=== PATIENT | female | born 1930 | race Caucasian/White ===

== ENCOUNTER 2017-02-21 12:53 | Inpatient (IN) ==
[2017-02-21] MEDS ORDERED: MAGNESIUM HYDROXIDE SUSP 30 ML UDCUP PO PRN (15:41)
[2017-02-21] MEDS ORDERED: ONDANSETRON 4 MG/2 ML VIAL IV PRN (15:41)
[2017-02-21] MEDS ORDERED: LOPERAMIDE 2 MG CAPSULE PO PRN ×2 (15:41)
[2017-02-21] MEDS ORDERED: ALUMINUM/MAGNES/SIMETH MAX STR 30 ML UDCUP PO PRN (15:41)
[2017-02-21] MEDS ORDERED: traMADol 50 MG TABLET PO PRN (15:41)
[2017-02-21] MEDS ORDERED: MYLANTA/LIDO VISC 2:1 300 ML BOTTLE SWISH/SPIT PRN (15:41)
[2017-02-21] MEDS ORDERED: chlorproMAZINE INJ 50 MG in SODIUM CHLORIDE 0.9% 100 ML IV PRN (15:41)
[2017-02-21] MEDS ORDERED: PROMETHAZINE INJ 25 MG in SODIUM CHLORIDE 0.9% 50 ML IV PRN (15:41)
[2017-02-21] MEDS ORDERED: guaiFENesin 200 MG/10 ML UDCUP PO PRN (15:41)
[2017-02-21] MEDS ORDERED: chlorproMAZINE 25 MG TABLET PO PRN (15:41)
[2017-02-21] MEDS ORDERED: MYLANTA/LIDO VISC 2:1 300 ML BOTTLE SWISH/SWAL PRN (15:41)
[2017-02-21] MEDS ORDERED: chlorproMAZINE INJ 25 MG in SODIUM CHLORIDE 0.9% 100 ML IV PRN (15:41)
[2017-02-21] MEDS ORDERED: BENZTROPINE 2 MG/2 ML AMP IV PRN (15:41)
[2017-02-21] MEDS ORDERED: diphenhydrAMINE CAP 25 MG CAPSULE PO PRN (15:41)
[2017-02-21] MEDS ORDERED: ALLOPURINOL 100 MG TABLET PO SCH (16:00)
[2017-02-21] MEDS: SODIUM CHLORIDE 0.45% 1,000 ML IV SCH (16:42)
[2017-02-21 17:43] LABS: Hematocrit 21.1 VOL% (35.7-47.0); Hemoglobin 7.4 GM/DL (12.0-16.0); Immature Granulocytes % 0.1 %; Immature Granulocytes Absolute 0.09 #; Lymphocytes # 78.7 10*3/uL (1.4-4.0); Lymphocytes % 77.2 % (21.3-54.2); Mean Corpuscular HGB Conc 35.1 GM/DL (32-36); Mean Corpuscular Hemoglobin 34 PG (27-34); Mean Corpuscular Volume 97.7 FL (87-102); Mean Platelet Volume 9.9 FL (9.6-12.0); Monocytes # 22.4 10*3/uL (0.11-0.8); NRBC # 0.19 10*3/uL; Neutrophils # 0.7 10*3/uL (1.4-7.4); Neutrophils % 0.7 % (38.7-73.9); Red Blood Count 2.16 MC/CUMM (3.8-5.5); Red Cell Distribution Width 18.3 % (9.3-17.3)
[2017-02-21 17:48] LABS: Platelet Count 24 T/CUMM (130-400)
[2017-02-21] MEDS ORDERED: SODIUM CHLORIDE 0.9% 250 ML IV PRN (18:02)
--- NOTE | 2017-02-21 18:10 | Oncology History&Physical ---
Assessment and Plan (1) Acute leukemia Status: Acute Assessment and plan: Highly suspicious for acute leukemia. Plan is peripheral blood evaluation and 2 units of packed red blood cells tonight. I have informed her that a bone marrow biopsy may be necessary though with her degree of circulating leukocytes a diagnosis could easily be rendered from peripheral blood testing. Her daughter and [id number] were present during my interview and discussion. I have started IV fluids and allopurinol in anticipation of some form of chemotherapy treatment. Current Visit: Yes History of Present Illness Chief complaint: leukocytosis History of present illness: Ms. Davies is a 86 year old female I was called about today from Dr. Andrew Bowers in [place]. The patient was noted to have a white blood cell count near 100,000. Previous testing from May 2016 revealed a normal white blood cell count. The patient is also noted to be profoundly anemic and thrombocytopenic. On questioning she is reported easy bruisability and some dyspnea with exertion. She otherwise has been living independently and appears younger than stated age Home Medications Medication Instructions Recorded Confirmed Type Amlodipine Besylate [Amlodipine 5 mg PO DAILY 02/21/17 02/21/17 History Besylate] buPROPion [Wellbutrin] 100 mg PO DAILY 02/21/17 02/21/17 History Allergies Allergy/AdvReac Type Severity Reaction Status Date / Time No Known Allergies Allergy Verified 02/21/17 15:41 Medical,Surgical,& Family Hx - Medical History Cardio: History of: Hypertension (on norvasc) Genitourinary: History of: Recurring Urinary Tract Infections - Family History Family History: Reports;: Family Cancer (mother father sister and 4 brothers) - Social History Smoking Status: Never smoker Frequency of Alcohol Use: None - Constitutional Constitutional: Present: chills, fatigue, malaise. Absent: fever(s), night sweats, weight gain - EENT Eye: Absent: diplopia, loss of vision Ears: Absent: ear discharge, ear pain Nose, mouth and throat: Absent: neck mass, neck pain, sore throat - Cardiovascular Cardiovascular ROS IM: Absent: chest pain - Respiratory Respiratory: Absent: cough - Genitourinary Genitourinary ROS female: Present: dysuria (History given of chronic urinary tract issues). Absent: difficulty urinating - Hematologic/Lymphatic Hematologic/Lymphatic: Present: easy bruising. Absent: lymphadenopathy Exam - Constitutional Vitals: Period Temp Pulse Resp BP Sys/Lopes Pulse Ox Last 24 Hr 97.9 F-98.0 F 77-82 20-20 106-131/59-63 98-98 General appearance: normal weight, no acute distress - Head Head Exam: Present: normal inspection, normocephalic - Eye Eye Exam: Present: EOMI. Absent: conjunctival injection, periorbital swelling, scleral icterus - ENT ENT exam: Present: normal external ear exam - Neck Neck exam: Present: normal inspection. Absent: lymphadenopathy - Respiratory Respiratory exam: Present: CTAB. Absent: accessory muscle use, chest wall tenderness - Cardiovascular Cardiovascular exam: Present: RRR. Absent: systolic murmur - GI/Abdominal GI/Abdominal exam: Absent: distended, firm, guarding - Extremities Exam Extremities exam: Present: normal capillary refill. Absent: edema - Neurological Exam Neurological exam: Present: alert, oriented X3 - Psychiatric Psychiatric exam: Present: normal affect, normal mood - Skin Skin exam: Present: warm, dry Results - Labs CBC & BMP: 02/21/17 17:24
[2017-02-21 18:13] LABS: Albumin 3.9 G/DL (3.4-5.0); Bilirubin,Total 0.7 MG/DL (0.2-1.0); Calcium 9.3 MG/DL (8.5-10.1); Osmolality,Calculated 275.1 MOS/KG (273-304); Potassium 2.7 MMOL/L (3.5-5.1); Total Protein 7.1 G/DL (6.4-8.3); Uric Acid 9.7 MG/DL (2.6-6.0)
[2017-02-21 19:11] LABS: Apearance,Urine CLOUDY (Clear); Bacteria,Urine Occasional /HPF (Few); Bilirubin,Urine Negative (Negative); Blood, Urine Moderate mg/dL (Negative); Glucose,Urine (UA) Negative (Negative); Ketones,Urine Negative (Negative); Mucus,Urine Occasional /LPF (Occasional); Nitrite,Urine Negative (Negative); Protein,Urine 100 MG/DL; RBC,Urine 8 /HPF (0-4); Squamous Epithelial Cell,Urine Occasional /HPF (0-10); Urine Color Yellow (Yellow); Urine Specific Gravity 1.009 (1.001-1.035); Urine Urobilinogen < 2.0 EU/DL (0.2-1.0); WBC,Urine 16 /HPF (0-6)
[2017-02-21] MEDS: TEMAZEPAM 7.5 MG CAPSULE PO PRN (20:49)
[2017-02-21] MEDS: ACETAMINOPHEN 325 MG TABLET PO PRN (20:50)
[2017-02-21 21:43] LABS: Hypochromasia 1+; Lymphocytes 97 % (20-55); Nucleated Red Blood Cells 1 (0-5); Platelet Estimate Decreased; Polychromasia Few; Total Cells Counted 100
[2017-02-21 21:44] LABS: Microcytosis 1+
[2017-02-22 05:36] LABS: Hematocrit 25.2 VOL% (35.7-47.0); Hemoglobin 8.7 GM/DL (12.0-16.0); Immature Granulocytes % 0.1 %; Immature Granulocytes Absolute 0.09 #; Lymphocytes # 46.2 10*3/uL (1.4-4.0); Lymphocytes % 44.5 % (21.3-54.2); Mean Corpuscular HGB Conc 34.5 GM/DL (32-36); Mean Corpuscular Hemoglobin 32 PG (27-34); Mean Corpuscular Volume 91.6 FL (87-102); Mean Platelet Volume 11.1 FL (9.6-12.0); Monocytes # 56.8 10*3/uL (0.11-0.8); Monocytes % 54.8 % (1.7-12.7); NRBC # 0.22 10*3/uL; Neutrophils # 0.6 10*3/uL (1.4-7.4); Neutrophils % 0.6 % (38.7-73.9); Red Blood Count 2.75 MC/CUMM (3.8-5.5); Red Cell Distribution Width 19.7 % (9.3-17.3)
[2017-02-22 05:48] LABS: Platelet Count 23 T/CUMM (130-400); White Blood Count 103.7 T/CUMM (4-12)
[2017-02-22 06:14] LABS: Lymphocytes 93 % (20-55); Total Cells Counted 100
[2017-02-22 06:15] LABS: Microcytosis 1+
[2017-02-22 06:16] LABS: Hypochromasia 1+; Ovalocytes Slight; Platelet Estimate Decreased
[2017-02-22 06:17] LABS: Atypical Lymphocytes Moderate
--- NOTE | 2017-02-22 07:59 | Oncology Progress Note ---
Assessment and Plan (1) Acute leukemia Status: Acute Assessment and plan: Highly suspicious for acute leukemia. Plan is peripheral blood evaluation and 2 units of packed red blood cells tonight. I have informed her that a bone marrow biopsy may be necessary though with her degree of circulating leukocytes a diagnosis could easily be rendered from peripheral blood testing. Her daughter and [id number] were present during my interview and discussion. I have started IV fluids and allopurinol in anticipation of some form of chemotherapy treatment. Current Visit: Yes Oncology Subjective PN Interval history: Hospital day 2 for elderly patient with suspected acute leukemia. Peripheral blood studies are being shipped today with results expected late tomorrow or early Monday. I am not going to pursue a bone marrow at this time. Transfuse red blood cells overnight. Reporting dysuria with leukocytes in the urine. I will start IV antibiotics today. Continue to watch her platelet count. She does have an elevated uric acid and we will continue hydration and allopurinol. Exam - Constitutional Vitals: Period Temp Pulse Resp BP Sys/Lopes Pulse Ox Last 24 Hr 97.9 F-100.4 F 69-84 18-20 94-131/48-63 94-98 Results - Labs CBC & BMP: 02/22/17 04:22 02/21/17 17:24
[2017-02-22] MEDS: ALLOPURINOL 300 MG TABLET PO SCH (10:01)
[2017-02-22] MEDS: cefTRIAXone 1,000 MG in SODIUM CHLORIDE 0.9% 100 ML IV SCH (10:10)
[2017-02-22] MEDS: LACTULOSE 20 GM/30 ML UDCUP PO PRN (12:47)
[2017-02-22] MEDS: SODIUM CHLORIDE 0.45% 1,000 ML IV SCH (21:00)
[2017-02-22] MEDS: TEMAZEPAM 7.5 MG CAPSULE PO PRN (21:01)
[2017-02-23] MEDS: SODIUM CHLORIDE 0.45% 1,000 ML IV SCH ×2 (04:43→18:38)
[2017-02-23 05:35] LABS: Hematocrit 24.6 VOL% (35.7-47.0); Hemoglobin 8.5 GM/DL (12.0-16.0); Immature Granulocytes % 0.1 %; Immature Granulocytes Absolute 0.13 #; Lymphocytes # 56.8 10*3/uL (1.4-4.0); Lymphocytes % 44.3 % (21.3-54.2); Mean Corpuscular HGB Conc 34.6 GM/DL (32-36); Mean Corpuscular Hemoglobin 32 PG (27-34); Mean Corpuscular Volume 92.5 FL (87-102); Monocytes # 70.9 10*3/uL (0.11-0.8); Monocytes % 55.2 % (1.7-12.7); NRBC # 0.17 10*3/uL; Neutrophils # 0.5 10*3/uL (1.4-7.4); Neutrophils % 0.4 % (38.7-73.9); Red Blood Count 2.66 MC/CUMM (3.8-5.5); Red Cell Distribution Width 19.9 % (9.3-17.3)
[2017-02-23 05:42] LABS: Platelet Count 18 T/CUMM (130-400); White Blood Count 128.3 T/CUMM (4-12)
[2017-02-23 06:07] LABS: Atypical Lymphocytes Moderate; Hypochromasia 1+; Lymphocytes 73 % (20-55); Microcytosis 1+; Ovalocytes Slight; Smudge Cells Moderate; Total Cells Counted 100
[2017-02-23 06:08] LABS: Platelet Estimate Decreased
[2017-02-23 06:11] LABS: Calcium 8.9 MG/DL (8.5-10.1); Magnesium 1.9 MG/DL (1.8-2.4); Potassium 2.6 MMOL/L (3.5-5.1)
[2017-02-23] MEDS ORDERED: POTASSIUM CHLORIDE 20 MEQ TABLET PO ONE (08:45)
--- NOTE | 2017-02-23 08:50 | Oncology Progress Note ---
Assessment and Plan (1) Acute leukemia Status: Acute Assessment and plan: Highly suspicious for acute leukemia. Plan is peripheral blood evaluation and 2 units of packed red blood cells tonight. I have informed her that a bone marrow biopsy may be necessary though with her degree of circulating leukocytes a diagnosis could easily be rendered from peripheral blood testing. Her daughter and [id number] were present during my interview and discussion. I have started IV fluids and allopurinol in anticipation of some form of chemotherapy treatment. Current Visit: Yes Oncology Subjective PN Interval history: Patient stable overnight. No fevers reported. Remains ambulatory and nontoxic. Labs are reviewed with worsening leuko-cytosis. I am going to have a PICC line placed today and check echocardiogram. 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 Exam - Constitutional Vitals: Period Temp Pulse Resp BP Sys/Lopes Pulse Ox Last 24 Hr 96.5 F-98.6 F 62-70 20-20 102-123/51-60 91-95 Results - Labs CBC & BMP: 02/23/17 04:31 02/23/17 04:31
[2017-02-23] MEDS: ALLOPURINOL 300 MG TABLET PO SCH (09:28)
[2017-02-23] MEDS: cefTRIAXone 1,000 MG in SODIUM CHLORIDE 0.9% 100 ML IV SCH (09:38)
--- NOTE | 2017-02-23 12:32 | ECHO Report ---
Roxanne Davies Exam Date: 02/23/2017 10:23 Referring Physician: Technologist: juan manuel Joya, RVT Age: 86 Ht (in): 71 Wt (lb): 174 Gender: F Exam Location: [facility] Echo Indications: Essential (primary) hypertension, UTI, Pre- chemo, Acute leukemia BP: 123 / 60 HR: 68 Rhythm: Sinus Technical Quality: Fair IMPRESSIONS 1. Normal left ventricular size and ejection fraction. EF is estimated to be in the 55% range. 2. Small to moderate sized pericardial effusion with what appears to be proteinaceous material in the pericardial effusion. No evidence of diastolic RV collapse. 3. Mild aortic valve sclerosis with preserved leaflet excursion 4. 1+ tricuspid insufficiency at velocities suggesting systolic PA pressures of 42 mmHg. MEASUREMENTS (Male / Female) Normal Values 2D ECHO LV Diastolic Diameter PLAX 4.9 cm 4.2 - 5.9 / 3.9 - 5.3 cm LV Systolic Diameter PLAX 2.5 cm LV Fractional Shortening PLAX 49.5 % IVS Diastolic Thickness 0.8 cm 0.6 - 1.0 / 0.6 - 0.9 cm LVPW Diastolic Thickness 0.9 cm 0.6 - 1.0 / 0.6 - 0.9 cm RV Internal Dim ED PLAX 3.2 cm Aortic Root Diameter 3.9 cm LA Systolic Diameter LX 3.8 cm 3.0 - 4.0 / 2.7 - 3.8 cm DOPPLER TR Peak Velocity 299.0 cm/s TR Peak Gradient 35.8 mmHg FINDINGS Left Ventricle Right Ventricle Right Atrium Left Atrium Mitral Valve Aortic Valve Tricuspid Valve Pulmonic Valve Pericardium Aorta Ben Calabrese MD (Electronically Signed) Final Date: 23 February 2017 12:31
--- NOTE | 2017-02-23 13:37 | Physician Query Form ---
CLICK EDIT DOCUMENT TO SELECT QUERY ANSWER --> OK --> SIGN Suzanna Reid RN Clinical Systems Integrator W) [phone] (f) [phone] [email or web address] PROVIDERS: Make your selection(s) from the choices in EACH section by typing an "x" and enter comments in the comment section. Please use your independent medical judgment in providing your response. This request does not imply that any particular answer is desired or expected. CLINICAL INDICATORS: (Providers should not edit this section) Based on documentation from echo report "UTI" Positive urine analysis. Positive urine culture for gram neg rods. Based on the above, could you clarify the appropriate diagnosis, if significant , that supports the above abnormalities and additional evaluation, monitoring, and/or treatment rendered: ( x) UTI ( ) Does NOT have a UTI ( ) Other, please specify: ( ) Clinically unable to determine COMMENTS: PLEASE ALSO DOCUMENT RESPONSE IN PROGRESS NOTES AND/OR DISCHARGE SUMMARY Use of terms such as suspected, likely, or probable (associated with a specific diagnosis that is being evaluated, monitored, or treated as if it exists) are acceptable and can be restated in the discharge summary if not ruled out. [facility]
[2017-02-23] MEDS ORDERED: DEXAMETHASONE 10 MG/1 ML VIAL IV ONE ×2 (14:43→16:00)
[2017-02-23] MEDS ORDERED: PALONOSETRON 0.25 MG/5 ML VIAL IV ONE ×2 (14:43→16:00)
--- NOTE | 2017-02-23 15:48 | Post Interventional Procedure ---
Pre-op diagnosis: leukemia Post-op diagnosis: same Procedure: PICC placement Contrast: none Flouroscopy: 0.1 min Radiologist: Joce Villafuerte Anesthesia: local Specimens: none sent Estimated blood loss: none Complications: none Condition: stable Description/Findings: left arm 5 F dual lumen picc placement done and ready to use Assessment and Plan - Time spent with patient Time spent with patient: Less than 30 minutes
--- NOTE | 2017-02-23 15:53 | Interventional Radiology Rpt ---
IR PICC line insertion, US guide vascular access IR PICC Placement Peripherally-inserted central catheter (PICC) placement using ultrasound and fluoroscopic guidance Ultrasound of the left upper extremity Clinical Information: 85 year old female with probable new diagnosis of leukemia. PICC line requested for intravenous access and chemotherapy administration. Physician: Dr. Villafuerte Procedure: The patient was advised of the benefits, risks, and alternatives of the procedure and informed consent was obtained. A time out was performed with verification of the patient's name, MRN, site of procedure, and type of procedure to be performed. The patient was positioned in the supine position on the angiographic table. The site was prepped and draped in the usual sterile fashion. Additionally, maximal sterile barrier technique was employed for the procedure. A bisque tile burner radiograph reveals no relevant abnormality. Ultrasound examination of the left arm demonstrates patent and compressible brachial and basilic veins. The left arm was prepped and draped in the usual sterile fashion. The left basilic vein was again identified. Using ultrasound guidance, a 21 gauge needle was used to access the vein. A permanent ultrasound recording of vascular access was obtained for the patient's record. A 0.018" cope wire was then advanced into the vein. The needle was exchanged for a 5 [place] peel-away sheath. A 5 [place] double lumen Bard Solo PICC catheter was measured and trimmed to the 38 cm scout. The PICC line was advanced through the sheath and into the central circulation. The catheter tip was positioned at the cavo-atrial junction. The peel-away sheath was then removed. At the conclusion of the procedure, the catheter was secured in place using a Stat-Lock device. A sterile dressing was applied. The lumens aspirate and flush freely. The catheter is ready for immediate use. The patient tolerated the procedure well and was returned to the PRU in stable condition. EBL: < 5 mL. Complications: None. Fluoroscopy time: 0.1 minutes Total number of images for this study: 3 Conclusion: Successful placement of a 5 [place] double lumen Bard Solo power injectable PICC via the left basilic vein. The catheter is ready for immediate use. PROCEDURE INTERPRETED AT [facility] DEPARTMENT OF RADIOLOGY Final Report Signed by: Joce Villafuerte
[2017-02-23] MEDS ORDERED: SODIUM CHLORIDE 0.9% IV SCH (16:00)
[2017-02-23] MEDS ORDERED: CYTARABINE IV SCH (16:00)
[2017-02-23 17:50] LABS: INR 1.3; PT Patient Result 13.9 SECS; Partial Thromboplastin Time 30.6 SECS (0-40)
[2017-02-23] MEDS: TEMAZEPAM 7.5 MG CAPSULE PO PRN (20:58)
[2017-02-24 04:43] LABS: Hematocrit 24.1 VOL% (35.7-47.0); Hemoglobin 8.4 GM/DL (12.0-16.0); Immature Granulocytes % 0.1 %; Immature Granulocytes Absolute 0.11 #; Lymphocytes # 86.3 10*3/uL (1.4-4.0); Lymphocytes % 73.4 % (21.3-54.2); Mean Corpuscular HGB Conc 34.9 GM/DL (32-36); Mean Corpuscular Hemoglobin 33 PG (27-34); Mean Corpuscular Volume 94.1 FL (87-102); Mean Platelet Volume 9.8 FL (9.6-12.0); Monocytes # 30.6 10*3/uL (0.11-0.8); NRBC # 0.05 10*3/uL; Neutrophils # 0.5 10*3/uL (1.4-7.4); Neutrophils % 0.5 % (38.7-73.9); Red Blood Count 2.56 MC/CUMM (3.8-5.5); Red Cell Distribution Width 19.2 % (9.3-17.3)
[2017-02-24 04:47] LABS: Platelet Count 19 T/CUMM (130-400); White Blood Count 117.6 T/CUMM (4-12)
[2017-02-24 05:04] LABS: Calcium 8.9 MG/DL (8.5-10.1); Potassium 3.8 MMOL/L (3.5-5.1)
[2017-02-24 05:40] LABS: Atypical Lymphocytes Moderate; Lymphocytes 83 % (20-55); Total Cells Counted 100
[2017-02-24 05:41] LABS: Hypochromasia 1+; Microcytosis 1+; Ovalocytes Slight; Platelet Estimate Decreased; Smudge Cells Few
[2017-02-24 05:42] LABS: Anisocytosis 1+
[2017-02-24 05:45] LABS: Phosphorous 2.9 MG/DL (2.5-4.9); Uric Acid 6.9 MG/DL (2.6-6.0)
[2017-02-24] MEDS ORDERED: SODIUM CHLORIDE 0.9% 250 ML IV PRN (08:20)
--- NOTE | 2017-02-24 08:43 | Oncology Progress Note ---
Assessment and Plan (1) Acute leukemia Status: Acute Assessment and plan: Highly suspicious for acute leukemia. Plan is peripheral blood evaluation and 2 units of packed red blood cells tonight. I have informed her that a bone marrow biopsy may be necessary though with her degree of circulating leukocytes a diagnosis could easily be rendered from peripheral blood testing. Her daughter and [id number] were present during my interview and discussion. I have started IV fluids and allopurinol in anticipation of some form of chemotherapy treatment. Current Visit: Yes Oncology Subjective PN Interval history: Patient stable overnight without fever chest pain or dyspnea. 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 I am awaiting a confirmatory FISH report from our reference lab in [place]. We will initiate oral all trans-retinoic acid this morning and hopefully begin arsenic trioxide later this evening I have reviewed potential complications of induction therapy with the patient and the nursing staff including but not limited to the fever, coagulopathy, and most importantly dedifferentiation syndrome. In light of this I will be begin dexamethasone iv twice daily prophylactically 4 days. Baseline chest x-ray will be obtained today. Echocardiogram is reviewed Urine culture shows Proteus vulgaris and a second yet identified gram-negative marlin. Antibiotics are adjusted this morning with discontinuation of Rocephin and initiation of cefepime based on the currently available sensitivity. Future sensitivities will need to be followed up. She will likely need red blood cell transfusion in the next 24-48 hours. Parameters are in place to maintain platelets above 30,000 with transfusion as needed. Her fibrinogen is low with 4 units of FFP ordered today. If volume becomes an issue, then cryoprecipitate would be appropriate for future fibrinogen replacement Exam - Constitutional Vitals: Period Temp Pulse Resp BP Sys/Lopes Pulse Ox Last 24 Hr 96.7 F-99.2 F 59-84 16-20 106-135/56-63 90-93 Results - Labs CBC & BMP: 02/24/17 04:15 02/24/17 04:15
[2017-02-24] MEDS: cefTRIAXone 1,000 MG in SODIUM CHLORIDE 0.9% 100 ML IV SCH (08:55)
[2017-02-24] MEDS ORDERED: DEXAMETHASONE 10 MG/1 ML VIAL IV SCH (09:00)
[2017-02-24] MEDS: SODIUM CHLORIDE 0.45% 1,000 ML IV SCH (09:02)
[2017-02-24] MEDS: CEFEPIME 1,000 MG in SODIUM CHLORIDE 0.9% 100 ML IV SCH ×2 (09:02→21:23)
[2017-02-24] MEDS: ALLOPURINOL 300 MG TABLET PO SCH (09:02)
[2017-02-24] MEDS ORDERED: DEXAMETHASONE 10 MG/1 ML VIAL IV ONE (11:30)
[2017-02-24] MEDS ORDERED: PALONOSETRON 0.25 MG/5 ML VIAL IV ONE (11:30)
[2017-02-24] MEDS: SODIUM CHLORIDE 0.9% IV SCH (15:37)
[2017-02-24] MEDS: CYTARABINE IV SCH (15:37)
--- NOTE | 2017-02-24 16:44 | XRay Report ---
History is AML, prechemotherapy The heart is mildly enlarged. A left PICC line catheter tip overlies the region of the SVC There is elevation right diaphragm with linear opacity in the right perihilar region. Calcified right hilar node and right lung granuloma present. No consolidated infiltrate is seen. Confluent shadows overlie the left lung base Impression: 1. Nonspecific elevation the right diaphragm with likely scarring and sequelae of remote granulomatous process in the right lung base 2. Mild cardiomegaly PROCEDURE INTERPRETED AT [facility] DEPARTMENT OF RADIOLOGY Final Report Signed by: Dr. Oanh Gonzales
[2017-02-24] MEDS: TEMAZEPAM 7.5 MG CAPSULE PO PRN (21:22)
[2017-02-25] MEDS: ALPRAZolam 0.25 MG TABLET PO PRN (00:23)
[2017-02-25] MEDS: SODIUM CHLORIDE 0.45% 1,000 ML IV SCH ×2 (02:15→15:39)
[2017-02-25 06:27] LABS: Hematocrit 20.4 VOL% (35.7-47.0); Hemoglobin 6.8 GM/DL (12.0-16.0); Immature Granulocytes % 0.2 %; Lymphocytes # 65.2 10*3/uL (1.4-4.0); Lymphocytes % 50.2 % (21.3-54.2); Mean Corpuscular HGB Conc 33.3 GM/DL (32-36); Mean Corpuscular Hemoglobin 32 PG (27-34); Mean Corpuscular Volume 94.9 FL (87-102); Mean Platelet Volume 10.1 FL (9.6-12.0); Monocytes % 49.2 % (1.7-12.7); NRBC # 0.11 10*3/uL; Neutrophils # 0.5 10*3/uL (1.4-7.4); Neutrophils % 0.4 % (38.7-73.9); Red Blood Count 2.15 MC/CUMM (3.8-5.5); Red Cell Distribution Width 19.3 % (9.3-17.3)
[2017-02-25 06:35] LABS: Platelet Count 39 T/CUMM (130-400); White Blood Count 129.9 T/CUMM (4-12)
[2017-02-25 07:12] LABS: Calcium 8.8 MG/DL (8.5-10.1); Magnesium 1.9 MG/DL (1.8-2.4); Osmolality,Calculated 287.4 MOS/KG (273-304); Potassium 3.4 MMOL/L (3.5-5.1)
[2017-02-25 07:35] LABS: Band Neutrophils 1 % (0-10); Hypochromasia 1+; Lymphocytes 28 % (20-55); Segmented Neutrophils 1 % (50-85); Total Cells Counted 100
[2017-02-25 07:36] LABS: Platelet Estimate Decreased
[2017-02-25] MEDS: ALLOPURINOL 300 MG TABLET PO SCH (09:29)
[2017-02-25] MEDS: LACTULOSE 20 GM/30 ML UDCUP PO PRN (09:29)
[2017-02-25] MEDS: CEFEPIME 1,000 MG in SODIUM CHLORIDE 0.9% 100 ML IV SCH ×2 (09:30→23:02)
--- NOTE | 2017-02-25 11:11 | Oncology Progress Note ---
Assessment and Plan (1) Acute leukemia Status: Acute Assessment and plan: continue with cytarabine day 2 - continue with cefepime coverage urine culture sensitive - continue with IVF and allopurinol - daily uric acid - transfusion support to keep plat > 20, fibrinogen >100, and Hct > 20 - transfuse 2 units PRBC and 10 units of cryo today - will repeat fibrinogen after cryoprecipitate given today - if WBC continues to rise will likely add hydrea until nelly-c starts to decrease counts Current Visit: Yes Oncology Subjective PN Interval history: 86 year old female admitted with newly dx AML initiated on NELLY-C chemotherapy 02/24. Per patient tolerating treatment well thus far. No N/V/D. No bleeding. No symptoms of hyperviscosity with no GAR, blurry vision. Refers constipation. No fevers. Referred some shortness of breath improved with 2 liters NS. Exam - Constitutional Vitals: Period Temp Pulse Resp BP Sys/Lopes Pulse Ox Last 24 Hr 97 F-98.4 F 61-94 18-20 128-160/59-78 92-98 General appearance: no acute distress - Eye Eye Exam: Present: EOMI Pupils: Present: PERRL - Respiratory Respiratory exam: Present: CTAB - Cardiovascular Cardiovascular exam: Present: RRR - GI/Abdominal GI/Abdominal exam: Present: soft. Absent: ascites, distended, mass, tenderness - Extremities Exam Extremities exam: Absent: edema - Neurological Exam Neurological exam: Present: alert, oriented X3 - Psychiatric Psychiatric exam: Present: normal affect - Skin Skin exam: Present: warm Results - Labs CBC & BMP: 02/25/17 04:42 02/25/17 04:42
[2017-02-25] MEDS ORDERED: SODIUM CHLORIDE 0.9% 250 ML IV PRN (11:13)
[2017-02-25] MEDS: CYTARABINE IV SCH (15:20)
[2017-02-25] MEDS: SODIUM CHLORIDE 0.9% IV SCH (15:20)
[2017-02-25] MEDS: LATANOPROST 0.005% OPH SOLN 2.5 ML BOTTLE BOTH EYES SCH (21:06)
[2017-02-26 05:31] LABS: Hematocrit 28.4 VOL% (35.7-47.0); Hemoglobin 9.5 GM/DL (12.0-16.0); Immature Granulocytes % 0.1 %; Immature Granulocytes Absolute 0.08 #; Lymphocytes # 67.9 10*3/uL (1.4-4.0); Lymphocytes % 76.9 % (21.3-54.2); Mean Corpuscular HGB Conc 33.5 GM/DL (32-36); Mean Corpuscular Hemoglobin 31 PG (27-34); Mean Corpuscular Volume 92.8 FL (87-102); Mean Platelet Volume 9.9 FL (9.6-12.0); Monocytes # 19.9 10*3/uL (0.11-0.8); Monocytes % 22.5 % (1.7-12.7); NRBC # 0.08 10*3/uL; Neutrophils # 0.4 10*3/uL (1.4-7.4); Neutrophils % 0.5 % (38.7-73.9); Red Blood Count 3.06 MC/CUMM (3.8-5.5); Red Cell Distribution Width 18.5 % (9.3-17.3)
[2017-02-26 05:35] LABS: Platelet Count 32 T/CUMM (130-400); White Blood Count 88.3 T/CUMM (4-12)
[2017-02-26 06:28] LABS: Bilirubin,Total 1.2 MG/DL (0.2-1.0); Calcium 8.3 MG/DL (8.5-10.1); Osmolality,Calculated 284.5 MOS/KG (273-304); Potassium 3.1 MMOL/L (3.5-5.1); Uric Acid 5.6 MG/DL (2.6-6.0)
[2017-02-26 06:44] LABS: INR 1.5; PT Patient Result 16.7 SECS; Partial Thromboplastin Time 25.9 SECS (0-40)
[2017-02-26 07:52] LABS: Lymphocytes 97 % (20-55); Promyelocytes 1 %; Segmented Neutrophils 2 % (50-85); Total Cells Counted 100
[2017-02-26 07:53] LABS: Hypochromasia 1+; Platelet Estimate Decreased
[2017-02-26] MEDS ORDERED: SODIUM CHLORIDE 0.9% 250 ML IV PRN (08:48)
[2017-02-26] MEDS ORDERED: POTASSIUM CHLORIDE RIDER 10 MEQ in PREMIX 1 EACH IV ONE (09:49)
--- NOTE | 2017-02-26 09:49 | Oncology Progress Note ---
Assessment and Plan (1) Acute leukemia Status: Acute Assessment and plan: continue with cytarabine day 3 - continue with cefepime coverage urine culture proteus and klebsiella sensitive cefepime - continue with IVF and allopurinol - daily uric acid - transfusion support to keep plat > 20, fibrinogen >100, and Hct > 20 - transfused 2 units PRBC and 10 units of cryo 02/25. will transfuse an addition 10 units of cryo today - will repeat fibrinogen after cryoprecipitate given today - WBC count starting to respond today. - no signs of TLS - replete potassium today Current Visit: Yes Oncology Subjective PN Interval history: 86 year old female presented with constipation and not feeling well found to have newly dx AML with elevated WBC count. Patient was initiated on cytarabine 02/24/17 and tolerating well. Patient had some SOB on 02/25 but has resolved today. Denies N/V/D. No abdominal pain. No bleeding. Refers poor appetite but is taking in calories. No fevers. Exam - Constitutional Vitals: Period Temp Pulse Resp BP Sys/Lopes Pulse Ox Last 24 Hr 96.3 F-98.5 F 64-72 15-20 116-149/57-70 92-99 General appearance: no acute distress - Eye Eye Exam: Present: EOMI Pupils: Present: PERRL - Respiratory Respiratory exam: Present: CTAB - Cardiovascular Cardiovascular exam: Present: RRR - GI/Abdominal GI/Abdominal exam: Present: soft. Absent: ascites, distended, guarding, mass, tenderness - Extremities Exam Extremities exam: Absent: edema - Neurological Exam Neurological exam: Present: alert, oriented X3 - Psychiatric Psychiatric exam: Present: normal affect - Skin Skin exam: Present: warm Results - Labs CBC & BMP: 02/26/17 04:52 02/26/17 04:52
[2017-02-26] MEDS: buPROPion 100 MG TABLET PO SCH (09:56)
[2017-02-26] MEDS: ALLOPURINOL 300 MG TABLET PO SCH (09:56)
[2017-02-26] MEDS: SODIUM CHLORIDE 0.45% 1,000 ML IV SCH (09:56)
[2017-02-26] MEDS: TIMOLOL 0.5% OPH SOLN 5 ML BOTTLE BOTH EYES SCH (09:56)
[2017-02-26] MEDS: CEFEPIME 1,000 MG in SODIUM CHLORIDE 0.9% 100 ML IV SCH (09:57)
[2017-02-26] MEDS: CYTARABINE IV SCH (14:21)
[2017-02-26] MEDS: SODIUM CHLORIDE 0.9% IV SCH (14:21)
[2017-02-26] MEDS: ACETAMINOPHEN 325 MG TABLET PO PRN (21:05)
[2017-02-26] MEDS: LATANOPROST 0.005% OPH SOLN 2.5 ML BOTTLE BOTH EYES SCH (21:19)
[2017-02-26] MEDS: MEROPENEM 1,000 MG in SODIUM CHLORIDE 0.9% 100 ML IV SCH (21:19)
[2017-02-26] MEDS: VANCOMYCIN INJ 1,250 MG in SODIUM CHLORIDE 0.9% 250 ML IV SCH (22:56)
[2017-02-27] MEDS: SODIUM CHLORIDE 0.45% 1,000 ML IV SCH (04:35)
[2017-02-27] MEDS: MEROPENEM 1,000 MG in SODIUM CHLORIDE 0.9% 100 ML IV SCH ×3 (04:35→21:03)
[2017-02-27 06:30] LABS: Hematocrit 26.8 VOL% (35.7-47.0); Immature Granulocytes % 0.1 %; Immature Granulocytes Absolute 0.07 #; Lymphocytes # 19.5 10*3/uL (1.4-4.0); Lymphocytes % 32.5 % (21.3-54.2); Mean Corpuscular HGB Conc 33.6 GM/DL (32-36); Mean Corpuscular Hemoglobin 31 PG (27-34); Mean Corpuscular Volume 93.4 FL (87-102); Mean Platelet Volume 9.1 FL (9.6-12.0); Monocytes # 40.2 10*3/uL (0.11-0.8); Monocytes % 66.9 % (1.7-12.7); NRBC # 0.06 10*3/uL; Neutrophils # 0.3 10*3/uL (1.4-7.4); Neutrophils % 0.5 % (38.7-73.9); Red Blood Count 2.87 MC/CUMM (3.8-5.5); Red Cell Distribution Width 18.6 % (9.3-17.3)
[2017-02-27 06:35] LABS: Platelet Count 22 T/CUMM (130-400); White Blood Count 60.1 T/CUMM (4-12)
[2017-02-27 06:42] LABS: INR 1.4; PT Patient Result 15.3 SECS
[2017-02-27] MEDS ORDERED: SODIUM CHLORIDE 0.9% 250 ML IV PRN (06:53)
[2017-02-27 07:04] LABS: Albumin 2.6 G/DL (3.4-5.0); Bilirubin,Total 0.7 MG/DL (0.2-1.0); Calcium 7.5 MG/DL (8.5-10.1); Osmolality,Calculated 284.4 MOS/KG (273-304); Potassium 3.8 MMOL/L (3.5-5.1); Total Protein 5.5 G/DL (6.4-8.3); Uric Acid 5.2 MG/DL (2.6-6.0)
--- NOTE | 2017-02-27 07:15 | XRay Report ---
Referring Physician: Reji Brown Exam: XR chest 1V portable Date: February 26, 2017 at 8:41 PM Reason: Hypoxia Comparison: Chest one view portable February 24, 2017 Findings: A left-sided PICC is in place with its distal tip within the SVC. The cardiac silhouette is again mildly enlarged, and there is persistent elevation of the right hemidiaphragm. A calcified granuloma is noted at the right lung base. There are opacities within both lower lung zones. This likely represents atelectasis, but there could also be pneumonia. No pneumothorax is identified, but there is mild left pleural fluid. The osseous structures appear stable. Impression: 1. Mild cardiomegaly. 2. There are opacities within both lower lung zones which have slightly increased since the previous study. This likely represents atelectasis, but there could also be pneumonia. There is also mild left pleural fluid. PROCEDURE INTERPRETED AT [facility] DEPARTMENT OF RADIOLOGY Final Report Signed by: Dr. Chadwick Vivas
[2017-02-27 08:16] LABS: Lymphocytes 82 % (20-55); Segmented Neutrophils 2 % (50-85); Total Cells Counted 100
[2017-02-27 08:18] LABS: Hypochromasia 1+
[2017-02-27 08:19] LABS: Microcytosis 1+; Platelet Estimate Decreased
--- NOTE | 2017-02-27 08:51 | Oncology Progress Note ---
Assessment and Plan (1) Acute leukemia Status: Acute Assessment and plan: Highly suspicious for acute leukemia. Plan is peripheral blood evaluation and 2 units of packed red blood cells tonight. I have informed her that a bone marrow biopsy may be necessary though with her degree of circulating leukocytes a diagnosis could easily be rendered from peripheral blood testing. Her daughter and [id number] were present during my interview and discussion. I have started IV fluids and allopurinol in anticipation of some form of chemotherapy treatment. Current Visit: Yes Oncology Subjective PN Interval history: Patient has developed fever and hypoxia over the last 24-36 hours. Her uric acid is within normal limits today. She does not exhibit peripheral edema. She does not exhibit tachycardia or wheezes on cardiopulmonary examination. Her abdomen is nontender with no diarrhea. Mild nausea is noted. Advanced directives discussed with DNR per patient wishes. Her daughter was present. She will receive platelets today with continued daily CBC and fibrinogen levels. Regarding her chemotherapy we will complete day 3 status are today and hold other chemotherapy due to the fever and hypoxia. Exam - Constitutional Vitals: Period Temp Pulse Resp BP Sys/Lopes Pulse Ox Last 24 Hr 98.1 F-101.2 F 63-104 16-20 110-151/52-78 87-96 Results - Labs CBC & BMP: 02/27/17 06:00 02/27/17 06:00
[2017-02-27] MEDS: ALLOPURINOL 300 MG TABLET PO SCH (09:49)
[2017-02-27] MEDS: buPROPion 100 MG TABLET PO SCH (09:49)
[2017-02-27] MEDS: TIMOLOL 0.5% OPH SOLN 5 ML BOTTLE BOTH EYES SCH (09:51)
[2017-02-27] MEDS ORDERED: DEXAMETHASONE 10 MG/1 ML VIAL IV ONE (10:25)
[2017-02-27] MEDS ORDERED: diphenhydrAMINE 50 MG/1 ML VIAL ONE (10:25)
[2017-02-27] MEDS ORDERED: diphenhydrAMINE 50 MG/1 ML VIAL IV ONE (10:25)
[2017-02-27] MEDS: VANCOMYCIN INJ 1,250 MG in SODIUM CHLORIDE 0.9% 250 ML IV SCH (16:45)
[2017-02-27] MEDS: TEMAZEPAM 7.5 MG CAPSULE PO PRN (22:02)
[2017-02-27] MEDS: LATANOPROST 0.005% OPH SOLN 2.5 ML BOTTLE BOTH EYES SCH (22:03)
[2017-02-28] MEDS: MEROPENEM 1,000 MG in SODIUM CHLORIDE 0.9% 100 ML IV SCH ×3 (04:45→20:31)
[2017-02-28 07:58] LABS: Hematocrit 26.4 VOL% (35.7-47.0); Immature Granulocytes % 0.2 %; Immature Granulocytes Absolute 0.06 #; Lymphocytes # 20.6 10*3/uL (1.4-4.0); Lymphocytes % 68.2 % (21.3-54.2); Mean Corpuscular HGB Conc 34.1 GM/DL (32-36); Mean Corpuscular Hemoglobin 32 PG (27-34); Mean Platelet Volume 10.6 FL (9.6-12.0); Monocytes # 9.2 10*3/uL (0.11-0.8); Monocytes % 30.5 % (1.7-12.7); NRBC # 0.02 10*3/uL; Neutrophils # 0.3 10*3/uL (1.4-7.4); Neutrophils % 1.1 % (38.7-73.9); Red Blood Count 2.84 MC/CUMM (3.8-5.5); Red Cell Distribution Width 17.9 % (9.3-17.3); White Blood Count 30.1 T/CUMM (4-12)
[2017-02-28 08:02] LABS: Platelet Count 31 T/CUMM (130-400)
[2017-02-28 08:26] LABS: Hypochromasia 1+; Lymphocytes 91 % (20-55); Total Cells Counted 100
[2017-02-28 08:27] LABS: Microcytosis 1+; Ovalocytes Slight
[2017-02-28 08:28] LABS: Atypical Lymphocytes Moderate; Platelet Estimate Decreased
[2017-02-28] MEDS ORDERED: SODIUM CHLORIDE 0.9% 250 ML IV PRN (08:48)
--- NOTE | 2017-02-28 08:50 | Oncology Progress Note ---
Assessment and Plan (1) Acute leukemia Status: Acute Assessment and plan: Highly suspicious for acute leukemia. Plan is peripheral blood evaluation and 2 units of packed red blood cells tonight. I have informed her that a bone marrow biopsy may be necessary though with her degree of circulating leukocytes a diagnosis could easily be rendered from peripheral blood testing. Her daughter and [id number] were present during my interview and discussion. I have started IV fluids and allopurinol in anticipation of some form of chemotherapy treatment. Current Visit: Yes Oncology Subjective PN Interval history: Patient with AML. She has improved over the last 24 hours. We are weaning her O2. We are continuing her antibiotics. Her white count has decreased to 30, 000. Continuing to treat a UTI. She is nontoxic in appearance and on examination. She continues to exhibit a low fibrinogen with cryoprecipitate 6 units ordered today. She does not require blood or platelets. Exam - Constitutional Vitals: Period Temp Pulse Resp BP Sys/Lopes Pulse Ox Last 24 Hr 96.3 F-98.4 F 63-82 18-20 122-139/57-67 92-97 Results - Labs CBC & BMP: 02/28/17 07:41 02/27/17 06:00
[2017-02-28] MEDS: TIMOLOL 0.5% OPH SOLN 5 ML BOTTLE BOTH EYES SCH (09:31)
[2017-02-28] MEDS: ALLOPURINOL 300 MG TABLET PO SCH (09:31)
[2017-02-28] MEDS: buPROPion 100 MG TABLET PO SCH (09:31)
[2017-02-28] MEDS: LACTULOSE 20 GM/30 ML UDCUP PO PRN (09:32)
[2017-02-28] MEDS: VANCOMYCIN INJ 1,250 MG in SODIUM CHLORIDE 0.9% 250 ML IV SCH (09:51)
[2017-02-28] MEDS: SODIUM CHLORIDE 0.45% 1,000 ML IV SCH (14:27)
[2017-02-28] MEDS: ALPRAZolam 0.25 MG TABLET PO PRN ×2 (17:19→21:38)
[2017-02-28] MEDS: TEMAZEPAM 7.5 MG CAPSULE PO PRN ×2 (20:31→22:45)
[2017-02-28] MEDS: LATANOPROST 0.005% OPH SOLN 2.5 ML BOTTLE BOTH EYES SCH (20:31)
[2017-03-01] MEDS ORDERED: traMADol 50 MG TABLET PO PRN (04:10)
[2017-03-01] MEDS: VANCOMYCIN INJ 1,250 MG in SODIUM CHLORIDE 0.9% 250 ML IV SCH ×2 (04:18→23:09)
[2017-03-01] MEDS: ALPRAZolam 0.25 MG TABLET PO PRN ×2 (04:18→08:15)
[2017-03-01] MEDS: MEROPENEM 1,000 MG in SODIUM CHLORIDE 0.9% 100 ML IV SCH ×3 (05:40→21:18)
[2017-03-01] MEDS: SODIUM CHLORIDE 0.45% 1,000 ML IV SCH ×2 (05:40→06:31)
[2017-03-01] MEDS: TIMOLOL 0.5% OPH SOLN 5 ML BOTTLE BOTH EYES SCH (08:14)
[2017-03-01] MEDS: ALLOPURINOL 300 MG TABLET PO SCH (08:14)
[2017-03-01] MEDS: buPROPion 100 MG TABLET PO SCH (08:19)
[2017-03-01 08:38] LABS: Hematocrit 21.8 VOL% (35.7-47.0); Hemoglobin 7.6 GM/DL (12.0-16.0); Immature Granulocytes % 0.1 %; Immature Granulocytes Absolute 0.01 #; Lymphocytes % 71.4 % (21.3-54.2); Mean Corpuscular HGB Conc 34.9 GM/DL (32-36); Mean Corpuscular Hemoglobin 32 PG (27-34); Mean Corpuscular Volume 92.8 FL (87-102); Mean Platelet Volume 11.4 FL (9.6-12.0); Monocytes # 4.2 10*3/uL (0.11-0.8); Monocytes % 27.3 % (1.7-12.7); Neutrophils # 0.2 10*3/uL (1.4-7.4); Neutrophils % 1.2 % (38.7-73.9); Red Blood Count 2.35 MC/CUMM (3.8-5.5); Red Cell Distribution Width 17.7 % (9.3-17.3); White Blood Count 15.4 T/CUMM (4-12)
[2017-03-01 08:43] LABS: Platelet Count 16 T/CUMM (130-400)
[2017-03-01] MEDS ORDERED: SODIUM CHLORIDE 0.9% 250 ML IV PRN (08:54)
--- NOTE | 2017-03-01 09:02 | EKG Report ---
Stationary ECG Study [facility] Test Date: 03/01/2017 9:04:13 AM Pat Name: PRIYANKA ANTONY Department: Room: 430 Gender: F Sport Psychologist: : [id number] Requested by: Claude Fajardo Order Number: [id number] Reading MD: LINDSAY GAY Intervals [place] Rate: 75 P: 64 MD: 190 QRS: -85 QRSD: 106 T: 63 QT: 307 QTc: 335 Interpretive Statements SINUS RHYTHM INDETERMINATE AXIS LOW QRS VOLTAGE IN PRECORDIAL LEADS LEFT ANTERIOR FASCICULAR BLOCK ANTEROSEPTAL MYOCARDIAL INFARCTION, OF INDETERMINATE AGE Electronically Signed On 03-02-17 07:37:56 CDT by LINDSAY GAY [id number]
--- NOTE | 2017-03-01 09:03 | Oncology Progress Note ---
Assessment and Plan (1) Acute leukemia Status: Acute Assessment and plan: Highly suspicious for acute leukemia. Plan is peripheral blood evaluation and 2 units of packed red blood cells tonight. I have informed her that a bone marrow biopsy may be necessary though with her degree of circulating leukocytes a diagnosis could easily be rendered from peripheral blood testing. Her daughter and [id number] were present during my interview and discussion. I have started IV fluids and allopurinol in anticipation of some form of chemotherapy treatment. 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 The patient received 3 days of nelly-C. She has been febrile overnight and has worsening hypoxia today. She has some cardiac ectopy on auscultation though no murmur. She has some congestion on bilateral anterior auscultation. In fact yesterday her lungs were clear and we were attempting to wean her oxygen. She certainly made turn for the worst in the last 24 hours. Her daughter is at bedside and we have discussed our plan of care to include discontinuation of IV fluids and will check cardiac BNP. Last week's echocardiogram seemed to have a well preserved ejection fraction. Continuing antibiotics of meropenem and vancomycin. I will check a CT of the chest. The possibility of a transfusion related lung injury is considered. I will give both red blood cells and platelets today. We are giving Xanax and have now ordered morphine for symptomatic relief in addition to O2 by simple facemask. We will consider for IV Lasix if her BNP is elevated or if significant pulmonary edema is appreciated. I have also discussed the pulmonary consultation which I would plan to pursue after CT results are available. Exam - Constitutional Vitals: Period Temp Pulse Resp BP Sys/Lopes Pulse Ox Last 24 Hr 97.9 F-101.8 F 69-90 20-20 136-165/66-88 93-100 Results - Labs CBC & BMP: 03/01/17 08:30 02/27/17 06:00
[2017-03-01 09:07] LABS: Albumin 2.8 G/DL (3.4-5.0); Bilirubin,Total 1.2 MG/DL (0.2-1.0); Calcium 7.7 MG/DL (8.5-10.1); Osmolality,Calculated 273.8 MOS/KG (273-304); Potassium 3.2 MMOL/L (3.5-5.1); Total Protein 5.6 G/DL (6.4-8.3)
[2017-03-01] MEDS: MORPHINE 2 MG/1 ML SYRINGE IV PRN ×2 (09:15→20:30)
[2017-03-01 09:33] LABS: Lymphocytes 90 % (20-55); Total Cells Counted 100
[2017-03-01 09:34] LABS: Hypochromasia 1+; Microcytosis 1+; Platelet Estimate Decreased
[2017-03-01] MEDS ORDERED: FUROSEMIDE 40 MG/4 ML VIAL IV ONE (10:26)
[2017-03-01] MEDS ORDERED: POTASSIUM CHLORIDE 20 MEQ TABLET PO ONE (10:26)
--- NOTE | 2017-03-01 11:07 | CT Report ---
Exam: CT chest w con Date: 03/01/2017 8:56 AM Comparison: Chest x-ray 02/26/2017 Indication: Fever, hypoxia, acute myelogenous leukemia Technique:[Continual axial scans of the chest were obtained following the injection of 80 cc of Omnipaque 350. Coronal and sagittal 2-D reconstructions were obtained. Total DLP: 259.40] Findings: The heart is enlarged with pericardial effusion which measures 20 mm in depth. Arterial calcifications are noted with no evidence of aortic dissection or definite pulmonary emboli. Enlarged mediastinal lymph nodes are identified. The largest node measures 20 mm in short axis in the subcarinal location. Minimal pleural effusions which measured 21 mm on the right and 13 mm the left at the level of the lakshmi. Calcified nodes. 52 mm hypodensity in the near the dome of the liver with additional smaller hypodensities. There is a 32 mm hypervascular finding in the posterior right lobe. Incomplete evaluation of the liver. 15 mm hypodense finding in the anterior spleen. Degenerative changes are noted. Diffuse parenchymal findings are noted with more dense consolidation/atelectasis in the lower lobes. Additional crazy paving pattern especially in the upper lobes and the left lower lobe. Impression: Cardiomegaly with pericardial effusion which measures 20 mm in depth with arterial calcifications. Echocardiogram may be helpful for further evaluation. Chest lymphadenopathy which may be related the patient's known leukemia. Bilateral pleural effusions which measure 21 mm on the right 13 mm on the left at the level of the lakshmi. Findings which can be seen with bilateral pneumonia with atelectasis. Additional crazy painting pattern which can be seen with pulmonary alveolar proteinosis, pneumocystis pneumonia, acute interstitial pneumonia, diffuse alveolar damage, pulmonary edema, alveolar hemorrhage, nonspecific interstitial pneumonitis, eosinophilic pneumonia, cryptogenic organizing pneumonia, etc. Findings consistent with probable hepatic cysts with additional indeterminant findings in the visualized liver and spleen. Follow-up CT may be helpful for further evaluation of these findings. This CT exam was performed using one or more the following dose reduction techniques: Automated exposure control, adjustment of the MA and/or KV according to patient size, or use of iterative reconstruction technique. PROCEDURE INTERPRETED AT [facility] DEPARTMENT OF RADIOLOGY Final Report Signed by: Dr. Roxanne Cunningham
[2017-03-01] MEDS ORDERED: MAGNESIUM SULFATE 1 GM/2 ML VIAL IV ONE (12:30)
[2017-03-01] MEDS ORDERED: MAGNESIUM SULFATE 1 GM/2 ML VIAL IM ONE (12:30)
[2017-03-01] MEDS ORDERED: MAGNESIUM SULF RIDER 2 GM in PREMIX 1 EACH IV ONE (13:00)
--- NOTE | 2017-03-01 14:29 | Cardiology Consult Note ---
Assessment and Plan (1) Pericardial effusion without cardiac tamponade Status: Acute Assessment and plan: True duration is unknown. Being proteinaceous in nature may indicate that it has been at least semi-chronic. There certainly is no tamponade present. This should not be contributing the patient's shortness of breath. Current Visit: Yes (2) Dyspnea Status: Acute Assessment and plan: This is to be improved this afternoon. May be secondary to the furosemide. She certainly has no cardiac issue that should be causing the dyspnea. She may be having some fluid retention for some other reasons. Certainly her CT of the chest does not reveal overt pulmonary vascular congestion or edema. Multiple other possibilities are noted. We will follow-up. Current Visit: Yes (3) Elevated brain natriuretic peptide (BNP) level Status: Acute Assessment and plan: BNP is elevated. In her present situation this may indicate some element of increased right ventricular pressures but she has no findings on echocardiogram of LV dysfunction or left atrial dysfunction or enlargement. Current Visit: Yes (4) Acute leukemia Status: Acute Current Visit: Yes History of Present Illness - Data of Consult Patient: new to practice Consult date: 03/01/17 Requesting Physician: Claude Pulido - Consult Narrative Reason for consult: Shortness of breath History of present illness: Ms. Davies is a 86 year old female who is being treated by Dr. Pena in the hospital at this time. She has a new diagnosis of acute myeloid leukemia this admission. We are asked to see the patient because she became short of breath over the last 24 hours and she had recently had a pericardial effusion on echocardiogram. There is mention that the patient was hypoxic but I cannot find what level of hypoxia she was on the chart. At present she is not really sure that short of breath and is stable. She states she has not had trouble shortness of breath previously. During my interview the patient was not short of breath and able to carry out a conversation without difficulty. She has apparently received 1 dose of furosemide IV. She had a CT of the chest today with contrast. That report is on the chart. She had lymphadenopathy noted up pericardial effusion. She has some arterial calcifications noted. She apparently had a hazy pattern in her lung feels that could be of multiple etiologies. Her chest x-ray on the is fairly unremarkable. She has had 2 echocardiograms this admission. The first was on revealed a left ventricular ejection fraction 55%. There is a small moderate-sized pericardial effusion that was without any evidence for tamponade. There is mild elevated right-sided pressures at 42 mmHg. Today a repeat echocardiograms carried out the official report has not been done yet. I reviewed this study and she continues to have a normal ejection fraction of the left ventricle as well as have a small moderate-sized pericardial effusion that appears to be proteinaceous in probably not acute. There is no evidence for tamponade. She did have elevated BNP. I am not sure what to make of this. The patient has had no prior cardiac history. States a year ago Dr. Lynne carried out what she describes as a stress test and echocardiogram as well as other studies. These were carried out secondary to some upper back discomfort that was persistent. She was told all of her studies were normal. We will try to obtain those records. At this time the patient though is stable. CC: Claude Pulido MD - Home Medications and Allergies Home Medications: Home Medications Medication Instructions Recorded Confirmed Type Amlodipine Besylate [Amlodipine 5 mg PO DAILY 02/21/17 02/21/17 History Besylate] buPROPion [Wellbutrin] 100 mg PO DAILY 02/21/17 02/21/17 History Latanoprost [Latanoprost 0.005 % 1 drop BOTH EYES BEDTIME 02/23/17 02/23/17 History Oph Soln] Timolol 0.5% Oph Soln [Timoptic 1 drop BOTH EYES DAILY 02/23/17 02/23/17 History 0.5%] Allergies/Adverse Reactions: Allergies Allergy/AdvReac Type Severity Reaction Status Date / Time No Known Allergies Allergy Verified 02/21/17 15:41 Review of systems: Constitutional: Denies anorexia, chills, fatigue, fever, frequent falls, night sweats, weight gain, weight loss Eyes: Denies visual changes or loss of vision Ears: Denies decreased hearing, vertigo Nose, mouth and throat: Denies dysphagia, epistaxis, headaches, neck pain, tongue swelling, Neck: Denies thyromegaly or masses. No stiffness. Cardiovascular: as per HPI Respiratory: Denies cough, dyspnea, hemoptysis, dyspnea on exertion, wheezing, snoring. She did have an episode of dyspnea today. Gastrointestinal: Denies abdominal pain, constipation, dyspepsia, dysphagia, hematemesis, hematochezia, melena, nausea, vomiting Genitourinary: Denies dysuria, hematuria, nocturia Musculoskeletal: Denies arthralgias, joint swelling, muscle weakness, myalgias Neurological: denies abnormal gait, abnormal speech, confusion, convulsions, frequent falls, headaches, memory loss, syncope Psychiatric: Denies anxiety, confusion, depression Endocrine: Denies cold intolerance, fatigue, heat intolerance Hematologic/Lymphatic: Denies easy bleeding, easy bruising Dermatologic: Denies Rash, itching, shingles Medical,Surgical,& Family Hx - Medical History Cardio: History of: Hypertension (on norvasc) Genitourinary: History of: Recurring Urinary Tract Infections - Family History Family History: Reports;: Family Cancer (mother father sister and 4 brothers) - Social History Smoking Status: Never smoker Frequency of Alcohol Use: None Physical Examination Vital Signs Temp Pulse Resp BP Pulse Ox 97.9 F 82 20 131/59 98 02/21/17 16:05 02/21/17 16:05 02/21/17 16:05 02/21/17 16:05 02/21/17 16:05 Other: General appearance: normal weight, no acute distress Head exam: normal inspection, atraumatic Eye exam: Pupils are equal and reactive. EOMI. There is no trauma. Ear exam: Anatomically normal. Normal auditory acuity to conversation. Oral exam: No significant oral lesions. Neck exam: normal inspection no JVD. No carotid bruit. Trachea is in midline. Respiratory exam: clear to auscultation bilaterally posteriorly and anteriorly with good air movement. No rales, rhonchi or wheezes. Cardiovascular exam: regular rate and rhythm, no murmur or gallop or rub. No precordial lift. No bruits over the major arteries. Chest wall/torso: Anatomically normal. No tenderness, deformity Peripheral Pulses: 2+ throughout. GI/Abdominal exam: normal bowel sounds, soft and nontender, no abdominal bruits or pulsatile masses. Musculoskeletal/Extremities exam: normal inspection without edema or cyanosis. No deformities or trauma. Neurological exam: alert, oriented X3. There is no gross neurologic deficits. Psychiatric exam: normal affect, normal mood. Cognitive function is grossly intact. Skin exam: normal color, warm. No rashes or other skin lesions. Result/EKG - Labs CBC & BMP: 03/01/17 08:30 03/01/17 08:30 Lab Results: I have reviewed the past 24 hour labs Labs: Laboratory Results - last 24 hr 03/01/17 03/01/17 03/01/17 04:21 08:30 08:30 WBC 15.4 H D RBC 2.35 L Hgb 7.6 L Hct 21.8 L MCV 92.8 MCH 32 MCHC 34.9 RDW 17.7 H Plt Count 16 L* D MPV 11.4 Neut % (Auto) 1.2 L Lymph % (Auto) 71.4 H [place] % (Auto) 27.3 H Eos % (Auto) 0.0 Baso % (Auto) 0.0 Neut # (Auto) 0.2 L Lymph # (Auto) 11.0 H [place] # (Auto) 4.2 H Eos # (Auto) 0.0 Baso # (Auto) 0.0 Total Counted 100 Immature Gran % 0.1 Nucleated RBC % 0.0 Immature Gran # 0.01 Lymphocytes 90 H Monocytes 9 Nucleated RBCs # 0.00 Blast Cells 1 Platelet Estimate Decreased Hypochromasia 1+ Microcytosis 1+ Sodium 137 Potassium 3.2 L Chloride 101 Carbon Dioxide 30 Anion Gap 9.2 BUN 19 H Creatinine 0.60 GFR Calculation 103 BUN/Creatinine Ratio 31.00 H Glucose 89 Calculated Osmolality 273.8 Calcium 7.7 L Magnesium Total Bilirubin 1.20 H AST 20 ALT 25 Alkaline Phosphatase 60 B-Natriuretic Peptide Total Protein 5.6 L Albumin 2.8 L Globulin 2.8 Albumin/Globulin Ratio 1.0 L Vancomycin Trough 11.3 Blood Type Antibody Screen Crossmatch 03/01/17 03/01/17 03/01/17 08:38 09:40 10:34 WBC RBC Hgb Hct MCV MCH MCHC RDW Plt Count MPV Neut % (Auto) Lymph % (Auto) [place] % (Auto) Eos % (Auto) Baso % (Auto) Neut # (Auto) Lymph # (Auto) [place] # (Auto) Eos # (Auto) Baso # (Auto) Total Counted Immature Gran % Nucleated RBC % Immature Gran # Lymphocytes Monocytes Nucleated RBCs # Blast Cells Platelet Estimate Hypochromasia Microcytosis Sodium Potassium Chloride Carbon Dioxide Anion Gap BUN Creatinine GFR Calculation BUN/Creatinine Ratio Glucose Calculated Osmolality Calcium Magnesium 1.6 L Total Bilirubin AST ALT Alkaline Phosphatase B-Natriuretic Peptide 832 H Total Protein Albumin Globulin Albumin/Globulin Ratio Vancomycin Trough Blood Type A POSITIVE Antibody Screen Negative Crossmatch See Detail - Impressions Impressions: ECG was sinus rhythm with low voltage QRS complexes. Left axis deviation with what is probably a left anterior fascicular block. Cannot rule out anterior septal myocardial infarction. I do not have any old EKGs to compare to.
--- NOTE | 2017-03-01 15:39 | Pulmonology Consult Note ---
Assessment and Plan (1) Volume overload Status: Acute Assessment and plan: Her clinical picture and CT of her chest are consistent with some mild volume overload. Her weight is up over 10 kg. She seems to be diuresing well now. Current Visit: Yes (2) Acute leukemia Status: Acute Assessment and plan: The patient is being evaluated for leukemia. Current Visit: Yes (3) Pericardial effusion without cardiac tamponade Status: Acute Assessment and plan: Patient has a small pericardial thickening and is stable. Current Visit: Yes (4) Dyspnea Status: Acute Assessment and plan: She has some shortness of breath earlier but is better now. She seems to be diuresing well. Current Visit: Yes (5) Elevated brain natriuretic peptide (BNP) level Status: Acute Assessment and plan: This is consistent with mild volume overload. Current Visit: Yes History of Present Illness Chief complaint: Shortness of breath History of present illness: Ms. Davies is a 86 year old white female that apparently has been fairly healthy. She has a history of hypertension but no history of lung disease and has never smoked. She was sent over because of elevated white count near 100, 000. She is felt to have acute leukemia and is being evaluated. She has required some fluids and blood products and earlier she was short of breath. She is not having any chest pain and not coughing up any sputum. She is feeling better after getting some Lasix. Her CT is actually consistent with some mild fluid overload with some patchy alveolar changes and small effusions. He apparently has a small pericardial effusion also. At present she is feeling much better and is not short of breath. Home Medications Medication Instructions Recorded Confirmed Type Amlodipine Besylate [Amlodipine 5 mg PO DAILY 02/21/17 02/21/17 History Besylate] buPROPion [Wellbutrin] 100 mg PO DAILY 02/21/17 02/21/17 History Latanoprost [Latanoprost 0.005 % 1 drop BOTH EYES BEDTIME 02/23/17 02/23/17 History Oph Soln] Timolol 0.5% Oph Soln [Timoptic 1 drop BOTH EYES DAILY 02/23/17 02/23/17 History 0.5%] Allergies Allergy/AdvReac Type Severity Reaction Status Date / Time No Known Allergies Allergy Verified 02/21/17 15:41 - Constitutional Constitutional: Absent: chills, fever(s), headache(s), weakness, weight gain - EENT Eyes: Absent: loss of vision Ears: Absent: decreased hearing Nose, mouth and throat: Absent: dysphagia, headache(s), sinus pressure, throat swelling - Cardiovascular Cardiovascular: Present: dyspnea. Absent: chest pain at rest, chest pain with activity, edema, palpitations - Respiratory Respiratory: Present: dyspnea. Absent: cough, hemoptysis, wheezing, change in phlegm color - Gastrointestinal Gastrointestinal: Absent: abdominal pain, change in bowel habits, dysphagia, heartburn, nausea, vomiting - Genitourinary Genitourinary: Present: urinary frequency. Absent: difficulty urinating, dysuria, hematuria - Musculoskeletal Musculoskeletal: Absent: arthralgias, joint swelling, muscle weakness - Neurological Neurological: Absent: abnormal speech, focal weakness, paresthesias - Psychiatric Psychiatric: Absent: anxiety Exam (Pulmonay) H&P - Constitutional Vitals: Period Temp Pulse Resp BP Sys/Lopes Pulse Ox Last 24 Hr 97.1 F-101.8 F 64-90 20-20 140-161/65-88 94-100 General appearance: normal weight, no acute distress, other (She is quite alert and comfortable now.) - Head Head exam: Present: normal inspection, normocephalic - Eye Eye exam: Present: EOMI. Absent: scleral icterus Pupils: Present: BRIAN - ENT ENT exam: Present: normal exam - Neck Neck exam: Present: normal inspection. Absent: lymphadenopathy, thyromegaly - Respiratory Respiratory exam: Present: rales (She has good breath sounds with some slight crackles in the bases.). Absent: wheezes - Cardiovascular Cardiovascular exam: Present: regular rate and rhythm. Absent: gallop, JVD, systolic murmur - GI/Abdominal GI/Abdominal exam: Present: soft. Absent: distended, guarding, organomegaly, tenderness - Extremities Exam Extremities exam: Absent: calf tenderness, edema - Neurological Exam Neurological exam: Present: alert, oriented X3, CN II-XII intact - Psychiatric Psychiatric exam: Present: normal affect, normal mood - Skin Skin exam: Present: warm, dry Medical,Surgical,& Family Hx - Medical History Cardio: History of: Hypertension (on norvasc) Genitourinary: History of: Recurring Urinary Tract Infections - Family History Family History: Reports;: Family Cancer (mother father sister and 4 brothers) - Social History Smoking Status: Never smoker Frequency of Alcohol Use: None Results - Labs CBC & BMP: 03/01/17 08:30 03/01/17 08:30 - Diagnostic Findings Procedure: Chest x-ray: image reviewed by me, report reviewed by me (Chest x- ray shows an elevated right hemidiaphragm with some linear atelectasis in the right base.), CT - chest: image reviewed by me, report reviewed by me (CT of the chest shows patchy alveolar changes and small effusions that are consistent with volume overload.)
[2017-03-01] MEDS: FUROSEMIDE 40 MG/4 ML VIAL IV ONE ×2 (16:41→18:26)
--- NOTE | 2017-03-01 17:31 | ECHO Report ---
Roxanne Daives Exam Date: 03/01/2017 12:58 Referring Physician: Technologist: Yoon Dooley LRGENOVEVA Age: 86 Ht (in): 71 Wt (lb): 204 Gender: F Exam Location: [facility] Echo Indications: acute leukemia, eval. pericardial effusion BP: 155 / 70 HR: 69 Rhythm: Sinus Technical Quality: IMPRESSIONS 1. Left ventricle is normal size and systolic function ejection fraction of 60% plus. There is moderate concentric left ventricular hypertrophy. 2. Other cardiac chambers appear to be grossly normal size. 3. Mitral valve may be mildly thickened but with overall normal function. 4. Aortic valve mildly sclerotic with trace to mild insufficiency. 5. Trace to mild tricuspid regurgitation. 6. Small pericardial effusion that appears to be proteinaceous. This is unchanged from prior echocardiogram. There is no tamponade. MEASUREMENTS (Male / Female) Normal Values 2D ECHO LV Diastolic Diameter PLAX 3.6 cm 4.2 - 5.9 / 3.9 - 5.3 cm LV Systolic Diameter PLAX 1.4 cm LV Fractional Shortening PLAX 62.5 % IVS Diastolic Thickness 1.7 cm 0.6 - 1.0 / 0.6 - 0.9 cm LVPW Diastolic Thickness 1.4 cm 0.6 - 1.0 / 0.6 - 0.9 cm RV Internal Dim ED PLAX 3.0 cm Aortic Root Diameter 2.8 cm LA Systolic Diameter LX 3.8 cm 3.0 - 4.0 / 2.7 - 3.8 cm DOPPLER TR Peak Velocity 198.0 cm/s TR Peak Gradient 15.7 mmHg FINDINGS Left Ventricle Left ventricle is normal size with normal ejection fraction of 60+%. No motion abnormalities. There is moderate concentric left ventricular hypertrophy Right Ventricle Right ventricle is normal size and function. Right Atrium The right atrium is probably normal size. Left Atrium The left atrium is probably normal size. Mitral Valve Mild mitral valve sclerosis. Trace mitral valve regurgitation. Aortic Valve Mild aortic valve sclerosis. Trace to mild aortic valve regurgitation. Tricuspid Valve Morphologically normal tricuspid valve. Mild tricuspid valve regurgitation. Tricuspid regurgitation velocities suggest a PAP of 26 mmHg. Pulmonic Valve Pulmonic valve not well visualized. Pericardium Small pericardial effusion. There is no evidence for tamponade. There is proteinaceous material present. In comparison to a previous echocardiogram there is no change. Aorta Normal size aortic root and proximal ascending aorta. Claude Garnica MD (Electronically Signed) Final Date: 01 March 2017 17:26
[2017-03-01 18:44] LABS: Apearance,Urine CLEAR (Clear); Bilirubin,Urine Negative (Negative); Blood, Urine Moderate mg/dL (Negative); Glucose,Urine (UA) Negative (Negative); Ketones,Urine Negative (Negative); Nitrite,Urine Negative (Negative); Protein,Urine Negative; RBC,Urine 6 /HPF (0-4); Urine Color Straw (Yellow); Urine Specific Gravity 1.012 (1.001-1.035); Urine Urobilinogen < 2.0 EU/DL (0.2-1.0); WBC,Urine <1 /HPF (0-6)
[2017-03-01] MEDS: LATANOPROST 0.005% OPH SOLN 2.5 ML BOTTLE BOTH EYES SCH (21:19)
[2017-03-01] MEDS: TEMAZEPAM 7.5 MG CAPSULE PO PRN (23:14)
[2017-03-02] MEDS: MORPHINE 2 MG/1 ML SYRINGE IV PRN ×5 (04:14→21:18)
[2017-03-02] MEDS: MEROPENEM 1,000 MG in SODIUM CHLORIDE 0.9% 100 ML IV SCH ×3 (04:14→21:18)
[2017-03-02 05:45] LABS: Hematocrit 26.7 VOL% (35.7-47.0); Hemoglobin 9.1 GM/DL (12.0-16.0); Immature Granulocytes % 0.1 %; Immature Granulocytes Absolute 0.01 #; Lymphocytes # 7.5 10*3/uL (1.4-4.0); Lymphocytes % 57.1 % (21.3-54.2); Mean Corpuscular HGB Conc 34.1 GM/DL (32-36); Mean Corpuscular Hemoglobin 31 PG (27-34); Mean Corpuscular Volume 91.4 FL (87-102); Mean Platelet Volume 12.1 FL (9.6-12.0); Monocytes # 5.4 10*3/uL (0.11-0.8); Monocytes % 41.4 % (1.7-12.7); Neutrophils # 0.2 10*3/uL (1.4-7.4); Neutrophils % 1.4 % (38.7-73.9); Red Blood Count 2.92 MC/CUMM (3.8-5.5); Red Cell Distribution Width 16.5 % (9.3-17.3); White Blood Count 13.1 T/CUMM (4-12)
[2017-03-02 05:47] LABS: Platelet Count 41 T/CUMM (130-400)
[2017-03-02 05:59] LABS: Calcium 7.8 MG/DL (8.5-10.1)
[2017-03-02 06:26] LABS: Lymphocytes 83 % (20-55); Segmented Neutrophils 2 % (50-85); Total Cells Counted 100
[2017-03-02 06:27] LABS: Hypochromasia 1+
[2017-03-02 06:28] LABS: Atypical Lymphocytes Few; Microcytosis 1+
[2017-03-02 06:29] LABS: Ovalocytes Slight; Platelet Estimate Decreased; Smudge Cells Few
[2017-03-02] MEDS: ALLOPURINOL 300 MG TABLET PO SCH (08:44)
[2017-03-02] MEDS: buPROPion 100 MG TABLET PO SCH (08:44)
[2017-03-02] MEDS: TIMOLOL 0.5% OPH SOLN 5 ML BOTTLE BOTH EYES SCH (08:44)
--- NOTE | 2017-03-02 08:51 | Oncology Progress Note ---
Assessment and Plan (1) Acute leukemia Status: Acute Assessment and plan: Highly suspicious for acute leukemia. Plan is peripheral blood evaluation and 2 units of packed red blood cells tonight. I have informed her that a bone marrow biopsy may be necessary though with her degree of circulating leukocytes a diagnosis could easily be rendered from peripheral blood testing. Her daughter and [id number] were present during my interview and discussion. I have started IV fluids and allopurinol in anticipation of some form of chemotherapy treatment. Current Visit: Yes Oncology Subjective PN Interval history: voice dictation not avail pt responded well to diuresis. consultants recommendations noted. soft heart sounds. no wheezes or crackles on posterior lung exam weight 191, down 9 lb soft [place] abdomen wbc [id number] k low a/p elderly pt with aml, volume overload will give one addit lasix this am. ivf was at 65 ml/hr and is discontinued continuing abx. still with an o2 requirement and low grade fever. Exam - Constitutional Vitals: Period Temp Pulse Resp BP Sys/Lopes Pulse Ox Last 24 Hr 97 F-100.2 F 64-76 18-20 123-161/60-86 93-97 Results - Labs CBC & BMP: 03/02/17 04:59 03/02/17 04:59
[2017-03-02] MEDS ORDERED: FUROSEMIDE 40 MG/4 ML VIAL IV ONE ×2 (08:52)
[2017-03-02] MEDS: POTASSIUM CHLORIDE 8 MEQ CAPSULE PO SCH ×2 (10:02→21:18)
--- NOTE | 2017-03-02 10:32 | Pulmonology Progress Note ---
Pulmonary - PN: Subj Interval history: Patient is an 86-year-old white lady that probably has leukemia. She is being evaluated for further treatment. She was transfused a couple units of packed cells yesterday. She had some shortness of breath but diuresed well yesterday and felt better. This morning she is a little more short of breath. She is not having any chest pain and cannot cough up any sputum. She has had a low- grade fever with a temp of 100.1. She says her breathing is not as worse as it was a few days ago. Exam (Progress Note) - Constitutional Vitals: Period Temp Pulse Resp BP Sys/Lopes Pulse Ox Last 24 Hr 97 F-100.2 F 64-76 18-20 123-161/60-87 93-97 Exam: General appearance: normal weight, no acute distress, other (She is comfortable sitting up in bed but does look mildly tachypneic.) - Head Head exam: Present: normal inspection, normocephalic - Eye Eye exam: Present: EOMI. Absent: scleral icterus Pupils: Present: BRIAN - ENT ENT exam: Present: normal exam - Neck Neck exam: Present: normal inspection. Absent: lymphadenopathy, thyromegaly - Respiratory Respiratory exam: Present: She does have mild bilateral rales still. I do not hear any wheezing. - Cardiovascular Cardiovascular exam: Present: regular rate and rhythm. Absent: gallop, JVD, systolic murmur - GI/Abdominal GI/Abdominal exam: Present: soft. Absent: distended, guarding, organomegaly, tenderness - Extremities Exam Extremities exam: Absent: calf tenderness, edema - Neurological Exam Neurological exam: Present: alert, oriented X3, CN II-XII intact - Psychiatric Psychiatric exam: Present: normal affect, normal mood - Skin Skin exam: Present: warm, dry Results - Labs CBC & BMP: 03/02/17 04:59 03/02/17 04:59 Assessment and Plan (1) Volume overload Status: Acute Assessment and plan: Her clinical picture and CT of her chest are consistent with some mild volume overload. She diuresed fairly well and her weight is down. She still sound a little bit wet. She will get another dose of Lasix today. Current Visit: Yes (2) Acute leukemia Status: Acute Assessment and plan: The patient is being evaluated for leukemia. Her counts are better today. Current Visit: Yes (3) Pericardial effusion without cardiac tamponade Status: Acute Assessment and plan: Patient has a small pericardial thickening and is stable. Current Visit: Yes (4) Dyspnea Status: Acute Assessment and plan: She has some shortness of breath and is doing a little better. She still has some mild tachypnea. She will get another dose of Lasix today. Will check a chest x-ray tomorrow. Current Visit: Yes (5) Elevated brain natriuretic peptide (BNP) level Status: Acute Assessment and plan: This is consistent with mild volume overload. Current Visit: Yes
--- NOTE | 2017-03-02 15:03 | Cardiology Progress Note ---
Tonny Pepe Vanessa, RN, am scribing for, and in the presence of, Claude Gay MD 15:01. Assessment and Plan - Time spent with patient Time spent with patient: Greater than 30 minutes (1) Pericardial effusion without cardiac tamponade Status: Acute Assessment and plan: Review of echocardiogram from July 2016 prior to this hospital admission reveals small pericardial effusion without tamponade. This would indicate that this is a chronic finding. Current Visit: Yes (2) Acute leukemia Status: Acute Assessment and plan: This is newly diagnosed. Will defer primary management to oncology service. Current Visit: Yes (3) Dyspnea Status: Acute Assessment and plan: This continues to improve today. Etiology is probably multifactorial and unlikely cardiac. Current Visit: Yes (4) Elevated brain natriuretic peptide (BNP) level Status: Acute Assessment and plan: Present situation this is a nonspecific finding. Current Visit: Yes (5) Hypertension Status: Chronic Assessment and plan: Chronic. Adequately controlled at this time. Current Visit: Yes Cardiology - PN: Subj Interval history: [employer]: DR. GAY SUMMARY: Ms. Davies is an 86-year-old female with past medical history including retention, and recurrent UTI. She has never been a smoker, she denies previous history of coronary artery disease. Patient is currently admitted to the hospital and has been newly diagnosed with acute myeloid leukemia. During the course of her admission, she has had some moderate shortness of breath and reported hypoxia. Per patient report, shortness of breath was not present prior to hospital admission for cardiology was asked to see as she has had echocardiogram this admission which noted her to have pericardial effusion. Review of 2 echocardiograms this admission. First echo on February 23 revealed LVEF 55% with small moderate sized pericardial effusion without evidence for cardiac tamponade on, and she had mildly elevated right-sided pressures at 42 mmHg. Second echocardiogram on March 01 seen again with a preserved EF as well as a small moderate sized pericardial effusion that appears to be proteinaceous in nature and probably not acute. There was no evidence for tamponade on repeat echocardiogram. It is noted BNP was 832. Patient has also had CT of the chest this admission with lymphadenopathy noted and hazy pattern in her lung barros that could be of multiple etiologies, some arterial calcification. EKG on March 01 sinus rhythm, pulse rate 70s, nonspecific ST_T changes, and no ischemia. Old records from previous cardiac evaluation at [facility] by Dr. Lynne were requested. February UPDATE: Ms. Davies is diuresed with IV Lasix yesterday. She has had a fair amount of output, and this morning she reports she does not feel as short of breath. Denies chest pain or tightness. Nonproductive cough. Received 2 units PRBCs and 1 unit PLTs yesterday as H&H 7.6/21.8, and platelets 16,000. Patient is improved today with H&H 9.1/26.7 and platelet count 41,000. Rest records have been obtained, and they have been reviewed. Echocardiogram in July 2016 with normal systolic function LVEF 55-60%, mild TR and RVSP 42 mmHg, small pericardial effusion without evidence of tamponade. Nuclear stress test in July 2016 interpreted as normal she had no diagnostic EKG changes, and she had appropriate pulse rate and blood pressure response to exercise. The studies are similar especially echocardiogram to her present studies. Low- grade temp overnight 100.2F max, and improved this morning. Vital signs otherwise stable with systolic BP ranging 120s-130s. Certainly based on her findings this patient's symptomatology is unlikely cardiac. I do not think any further cardiac evaluation is indicated needed at this time. We will sign off but if we can be of any further service please let us know. Exam (Progress Note) - Constitutional Vitals: Period Temp Pulse Resp BP Sys/Lopes Pulse Ox Last 24 Hr 97 F-100.2 F 64-76 18-20 123-161/60-87 93-97 Exam: General appearance: normal weight, no acute distress Head exam: normal inspection, atraumatic Eye exam: Pupils are equal and reactive. EOMI. There is no trauma. Ear exam: Anatomically normal. Normal auditory acuity to conversation. Oral exam: No significant oral lesions. Neck exam: normal inspection no JVD. No carotid bruit. Trachea is in midline. Respiratory exam: clear to auscultation bilaterally posteriorly and anteriorly with good air movement. No rales, rhonchi or wheezes. Cardiovascular exam: regular rate and rhythm, no murmur or gallop or rub. No precordial lift. No bruits over the major arteries. Chest wall/torso: Anatomically normal. No tenderness, deformity Peripheral Pulses: 2+ throughout. GI/Abdominal exam: normal bowel sounds, soft and nontender, no abdominal bruits or pulsatile masses. Musculoskeletal/Extremities exam: normal inspection without edema or cyanosis. No deformities or trauma. Neurological exam: alert, oriented X3. There is no gross neurologic deficits. Psychiatric exam: normal affect, normal mood. Cognitive function is grossly intact. Skin exam: normal color, warm, dry. No rashes or other skin lesions. Result/EKG - Labs CBC & BMP: 03/02/17 04:59 03/02/17 04:59 Lab Results: I have reviewed the past 24 hour labs Labs: Laboratory Results - last 24 hr 03/01/17 03/01/17 03/02/17 09:40 16:58 04:59 WBC 13.1 H RBC 2.92 L D Hgb 9.1 L Hct 26.7 L MCV 91.4 MCH 31 MCHC 34.1 RDW 16.5 Plt Count 41 L D MPV 12.1 H Neut % (Auto) 1.4 L Lymph % (Auto) 57.1 H [place] % (Auto) 41.4 H Eos % (Auto) 0.0 Baso % (Auto) 0.0 Neut # (Auto) 0.2 L Lymph # (Auto) 7.5 H [place] # (Auto) 5.4 H Eos # (Auto) 0.0 Baso # (Auto) 0.0 Total Counted 100 Immature Gran % 0.1 Nucleated RBC % 0.0 Immature Gran # 0.01 Segmented Neutrophils 2 L Lymphocytes 83 H Monocytes 13 Nucleated RBCs # 0.00 Atypical Lymphocytes Few Blast Cells 2 Smudge Cells Few Platelet Estimate Decreased Hypochromasia 1+ Microcytosis 1+ Ovalocytes Slight Fibrinogen Sodium Potassium Chloride Carbon Dioxide Anion Gap BUN Creatinine GFR Calculation BUN/Creatinine Ratio Glucose Calculated Osmolality Calcium Magnesium Urine Color Straw Urine Appearance Clear Urine pH 7.0 Ur Specific [place] 1.012 Urine Protein Negative Urine Glucose (UA) Negative Urine Ketones Negative Urine Blood Moderate Urine Nitrate Negative Urine Bilirubin Negative Urine Urobilinogen < 2.0 H Urine Leukocytes Negative Urine RBC 6 Urine WBC <1 Ur Culture Indicated? Not indicated Blood Type A POSITIVE Antibody Screen Negative Crossmatch See Detail 03/02/17 03/02/17 04:59 04:59 WBC RBC Hgb Hct MCV MCH MCHC RDW Plt Count MPV Neut % (Auto) Lymph % (Auto) [place] % (Auto) Eos % (Auto) Baso % (Auto) Neut # (Auto) Lymph # (Auto) [place] # (Auto) Eos # (Auto) Baso # (Auto) Total Counted Immature Gran % Nucleated RBC % Immature Gran # Segmented Neutrophils Lymphocytes Monocytes Nucleated RBCs # Atypical Lymphocytes Blast Cells Smudge Cells Platelet Estimate Hypochromasia Microcytosis Ovalocytes Fibrinogen 139 L Sodium 136 Potassium 3.0 L Chloride 96 L Carbon Dioxide 32 Anion Gap 11.0 BUN 20 H Creatinine 0.70 GFR Calculation 95 BUN/Creatinine Ratio 28.00 H Glucose 93 Calculated Osmolality 274.0 Calcium 7.8 L Magnesium 2.0 Urine Color Urine Appearance Urine pH Ur Specific [place] Urine Protein Urine Glucose (UA) Urine Ketones Urine Blood Urine Nitrate Urine Bilirubin Urine Urobilinogen Urine Leukocytes Urine RBC Urine WBC Ur Culture Indicated? Blood Type Antibody Screen Crossmatch - Diagnostic Findings Procedure: Chest x-ray: image reviewed by me, report reviewed by me - EKG EKG results: interpreted by me, no acute changes EKG shows: sinus rhythm Nahun Pepe John Timothy, MD, personally performed the services described in this documentation, ascribed by Kezia Lancaster RN in my presence, and it is both accurate and complete [id number] .
[2017-03-02] MEDS: ALPRAZolam 0.25 MG TABLET PO PRN (16:03)
[2017-03-02] MEDS: VANCOMYCIN INJ 1,250 MG in SODIUM CHLORIDE 0.9% 250 ML IV SCH (16:03)
[2017-03-02] MEDS: TEMAZEPAM 7.5 MG CAPSULE PO PRN (21:18)
[2017-03-02] MEDS: LATANOPROST 0.005% OPH SOLN 2.5 ML BOTTLE BOTH EYES SCH (21:18)
[2017-03-03] MEDS: MEROPENEM 1,000 MG in SODIUM CHLORIDE 0.9% 100 ML IV SCH ×3 (04:12→20:56)
[2017-03-03 06:33] LABS: Hematocrit 25.5 VOL% (35.7-47.0); Hemoglobin 8.6 GM/DL (12.0-16.0); Immature Granulocytes % 0.4 %; Immature Granulocytes Absolute 0.06 #; Lymphocytes # 4.3 10*3/uL (1.4-4.0); Lymphocytes % 31.7 % (21.3-54.2); Mean Corpuscular HGB Conc 33.7 GM/DL (32-36); Mean Corpuscular Hemoglobin 31 PG (27-34); Mean Corpuscular Volume 91.4 FL (87-102); Mean Platelet Volume 11.9 FL (9.6-12.0); Monocytes # 9.1 10*3/uL (0.11-0.8); Monocytes % 66.6 % (1.7-12.7); Neutrophils # 0.2 10*3/uL (1.4-7.4); Neutrophils % 1.3 % (38.7-73.9); Red Blood Count 2.79 MC/CUMM (3.8-5.5); Red Cell Distribution Width 16.5 % (9.3-17.3); White Blood Count 13.6 T/CUMM (4-12)
[2017-03-03 06:38] LABS: Platelet Count 21 T/CUMM (130-400)
[2017-03-03] MEDS ORDERED: SODIUM CHLORIDE 0.9% 250 ML IV PRN (06:38)
[2017-03-03] MEDS: MORPHINE 2 MG/1 ML SYRINGE IV PRN ×3 (06:59→19:33)
[2017-03-03 07:03] LABS: Hypochromasia 2+; Lymphocytes 94 % (20-55); Microcytosis 1+; Platelet Estimate Decreased; Total Cells Counted 100
[2017-03-03 07:04] LABS: Calcium 8.2 MG/DL (8.5-10.1); Magnesium 1.8 MG/DL (1.8-2.4); Osmolality,Calculated 274.8 MOS/KG (273-304); Potassium 3.2 MMOL/L (3.5-5.1)
--- NOTE | 2017-03-03 07:15 | XRay Report ---
Exam: XR chest 1V portable Date: 03/03/2017 4:00 AM Indication: Shortness of breath Comparison: 02/26/2017 Technical:AP portable Findings: Left-sided PICC line is present. ASVD is present. Low volume effusions are present with underlying interstitial thickening in the perihilar regions. Oxygen tubing is present. Small nodes in the mediastinum. No pneumothorax. Some mild alveolar density and some peribronchial cuffing in the left perihilar region. Impression: 1. Stable appearance of left-sided PICC line 2. Some underlying alveolar density and atelectatic change and effusions left greater than right PROCEDURE INTERPRETED AT [facility] DEPARTMENT OF RADIOLOGY Final Report Signed by: Dr. Galen Raza
[2017-03-03] MEDS: ALLOPURINOL 300 MG TABLET PO SCH (08:25)
[2017-03-03] MEDS: buPROPion 100 MG TABLET PO SCH (08:25)
[2017-03-03] MEDS: POTASSIUM CHLORIDE 8 MEQ CAPSULE PO SCH ×2 (08:25→20:54)
[2017-03-03] MEDS: TIMOLOL 0.5% OPH SOLN 5 ML BOTTLE BOTH EYES SCH (08:26)
[2017-03-03] MEDS: VANCOMYCIN INJ 1,250 MG in SODIUM CHLORIDE 0.9% 250 ML IV SCH (11:17)
--- NOTE | 2017-03-03 11:17 | Pulmonology Progress Note ---
Pulmonary - PN: Subj Interval history: Patient is an 86-year-old white lady that probably has leukemia. She is being evaluated for further treatment. She says she had a fairly good night but she is still coughing some. She has not been able to bring up much sputum. She does get short of breath easily still. She did diurese quite nicely yesterday. She seems to be breathing a little better. Exam (Progress Note) - Constitutional Vitals: Period Temp Pulse Resp BP Sys/Lopes Pulse Ox Last 24 Hr 98.5 F-99.9 F 68-76 20-20 120-140/57-68 91-94 Exam: General appearance: normal weight, no acute distress, other (She is comfortable sitting up in bed she looks a little more comfortable today.) - Head Head exam: Present: normal inspection, normocephalic - Eye Eye exam: Present: EOMI. Absent: scleral icterus Pupils: Present: BRIAN - ENT ENT exam: Present: normal exam - Neck Neck exam: Present: normal inspection. Absent: lymphadenopathy, thyromegaly - Respiratory Respiratory exam: Present: She has fairly good breath sounds bilaterally and she does have some mild rhonchi present. - Cardiovascular Cardiovascular exam: Present: regular rate and rhythm. Absent: gallop, JVD, systolic murmur - GI/Abdominal GI/Abdominal exam: Present: soft. Absent: distended, guarding, organomegaly, tenderness - Extremities Exam Extremities exam: Absent: calf tenderness, edema - Neurological Exam Neurological exam: Present: alert, oriented X3, CN II-XII intact - Psychiatric Psychiatric exam: Present: normal affect, normal mood - Skin Skin exam: Present: warm, dry Results - Labs CBC & BMP: 03/03/17 04:44 03/03/17 04:44 - Diagnostic Findings Procedure: Chest x-ray: image reviewed by me, report reviewed by me (Her chest x -ray still shows mild bilateral interstitial changes.) Assessment and Plan (1) Volume overload Status: Acute Assessment and plan: Her clinical picture and CT of her chest are consistent with some mild volume overload. She did diurese fairly well. Her breathing may be a little better. Her chest x-ray still not clear and some of this may be a mild pneumonitis. Current Visit: Yes (2) Acute leukemia Status: Acute Assessment and plan: The patient is being evaluated for leukemia. Her counts are about the same. Current Visit: Yes (3) Pericardial effusion without cardiac tamponade Status: Acute Assessment and plan: Patient has a small pericardial thickening and is stable. Current Visit: Yes (4) Dyspnea Status: Acute Assessment and plan: She has had some shortness of breath but may be a little better. She is coughing and still has a little bit of congestion. She did diurese well over the past 2 days. She may have some mild patchy pneumonitis still. She is getting antibiotics and will add some respiratory therapy. Current Visit: Yes (5) Elevated brain natriuretic peptide (BNP) level Status: Acute Assessment and plan: This is consistent with mild volume overload. She did diurese nicely. Current Visit: Yes
[2017-03-03] MEDS ORDERED: POTASSIUM CHLORIDE 20 MEQ TABLET PO ONE (12:19)
--- NOTE | 2017-03-03 12:25 | Oncology Progress Note ---
Assessment and Plan (1) Acute leukemia Status: Acute Assessment and plan: Highly suspicious for acute leukemia. Plan is peripheral blood evaluation and 2 units of packed red blood cells tonight. I have informed her that a bone marrow biopsy may be necessary though with her degree of circulating leukocytes a diagnosis could easily be rendered from peripheral blood testing. Her daughter and [id number] were present during my interview and discussion. I have started IV fluids and allopurinol in anticipation of some form of chemotherapy treatment. Current Visit: Yes Oncology Subjective PN Interval history: Hospital day 8 for patient admitted with acute myelogenous leukemia. She received 3 days of cytarabine. This was discontinued on Monday due to fever and hypoxia. During the week we have continued to follow her for shortness of breath. She was better yesterday after diuresis. She does have a pericardial effusion which is being followed expectantly at this time. She has ran fever and very likely has some component of pneumonia as well and is on vancomycin and IV penicillin. She also has a urinary tract infection with 2 separate organisms. She has required multiple units of plasma, cryoprecipitate, red blood cells and platelets. We are planning to give platelets today. I discussed the case with her son today. I have also spoken with her daughter earlier in the week. Her prognosis is exceedingly poor. At this time we are continuing with best medical support. It is uncertain if we will be able to entertain any further chemotherapy, either inpatient or outpatient. Her white blood cell count has plateaued at 13,000 being as high as 130,000 initially. Exam - Constitutional Vitals: Period Temp Pulse Resp BP Sys/Lopes Pulse Ox Last 24 Hr 98.5 F-99.9 F 68-76 20-20 120-140/57-68 91-94 Results - Labs CBC & BMP: 03/03/17 04:44 03/03/17 04:44
[2017-03-03] MEDS ORDERED: diphenhydrAMINE 50 MG/1 ML VIAL ONE (12:31)
[2017-03-03] MEDS: ALBUTEROL 1.25 MG/3 ML NEB RESP TX SCH ×2 (13:55→19:24)
[2017-03-03] MEDS: ALPRAZolam 0.25 MG TABLET PO PRN (17:51)
[2017-03-03] MEDS: LATANOPROST 0.005% OPH SOLN 2.5 ML BOTTLE BOTH EYES SCH (20:55)
[2017-03-03] MEDS: TEMAZEPAM 7.5 MG CAPSULE PO PRN (21:43)
[2017-03-04] MEDS: ALBUTEROL 1.25 MG/3 ML NEB RESP TX SCH ×4 (00:08→20:07)
[2017-03-04] MEDS: MEROPENEM 1,000 MG in SODIUM CHLORIDE 0.9% 100 ML IV SCH ×3 (05:27→20:52)
[2017-03-04] MEDS: VANCOMYCIN INJ 1,250 MG in SODIUM CHLORIDE 0.9% 250 ML IV SCH ×2 (05:34→22:22)
[2017-03-04 06:22] LABS: Hemoglobin 8.1 GM/DL (12.0-16.0); Immature Granulocytes % 0.1 %; Immature Granulocytes Absolute 0.01 #; Lymphocytes % 53.6 % (21.3-54.2); Mean Corpuscular HGB Conc 33.8 GM/DL (32-36); Mean Corpuscular Hemoglobin 32 PG (27-34); Mean Corpuscular Volume 94.1 FL (87-102); Monocytes # 7.5 10*3/uL (0.11-0.8); Monocytes % 45.1 % (1.7-12.7); Neutrophils # 0.2 10*3/uL (1.4-7.4); Neutrophils % 1.2 % (38.7-73.9); Platelet Count 41 T/CUMM (130-400); Red Blood Count 2.55 MC/CUMM (3.8-5.5); Red Cell Distribution Width 16.8 % (9.3-17.3); White Blood Count 16.7 T/CUMM (4-12)
[2017-03-04 06:51] LABS: Magnesium 1.7 MG/DL (1.8-2.4); Potassium 3.9 MMOL/L (3.5-5.1)
[2017-03-04 07:23] LABS: Atypical Lymphocytes Few; Lymphocytes 97 % (20-55); Total Cells Counted 100
[2017-03-04 07:24] LABS: Hypochromasia 1+
[2017-03-04 07:26] LABS: Microcytosis 1+; Platelet Estimate Decreased
[2017-03-04] MEDS ORDERED: HEPARIN LOCK FLUSH 500 UNIT/5 ML SYRINGE IV ONE (07:47)
[2017-03-04] MEDS: MORPHINE 2 MG/1 ML SYRINGE IV PRN ×4 (07:51→20:56)
--- NOTE | 2017-03-04 09:20 | Oncology Progress Note ---
Oncology Subjective PN Interval history: Problems: Acute myelogenous leukemia: She was unable to complete a full course of induction chemotherapy for her leukemia because of the toxicity and poor tolerance.The absolute neutrophil count is 200. Anemia: Her hemoglobin today is 8.1. We will continue to monitor and transfuse as needed. No evidence of acute blood loss. Thrombocytopenia: Her platelet count today is 41,000. We will continue to monitor. Urinary tract infection: Urine cultures are growing Proteus vulgaris that has intermediate sensitivity to Merrem, actually imipenem. Urine culture also positive for Klebsiella that is sensitive to imipenem. She is on intravenous IV antibiotics. Hypoxia Recurrent fever: Initial blood cultures were negative. A repeat set of blood cultures were done last night and are pending. I had a relatively prolonged discussion with her son and [id number] and we went over the fact that she did not tolerate chemotherapy well. She only got 3 days of it. They were already aware that her prognosis was poor and she is designated a DO NOT RESUSCITATE Exam - Constitutional Vitals: Period Temp Pulse Resp BP Sys/Lopes Pulse Ox Last 24 Hr 97 F-101.3 F 64-93 15-22 126-149/58-68 5-99 Results - Labs CBC & BMP: 03/04/17 04:35 03/04/17 04:35
[2017-03-04] MEDS: POTASSIUM CHLORIDE 8 MEQ CAPSULE PO SCH ×2 (13:18→20:51)
[2017-03-04] MEDS: buPROPion 100 MG TABLET PO SCH (13:20)
[2017-03-04] MEDS: ALLOPURINOL 300 MG TABLET PO SCH (13:21)
[2017-03-04] MEDS: TIMOLOL 0.5% OPH SOLN 5 ML BOTTLE BOTH EYES SCH (13:22)
--- NOTE | 2017-03-04 20:27 | Pulmonology Progress Note ---
Pulmonary - PN: Subj Interval history: 86-year-old female with probable leukemia. No acute events overnight. Breathing remained stable without significant improvement or decline. Exam (Progress Note) - Constitutional Vitals: Period Temp Pulse Resp BP Sys/Lopes Pulse Ox Last 24 Hr 98.4 F-99.8 F 68-83 18-22 128-149/58-67 95-98 General appearance: normal weight - Head Head exam: Present: normal inspection - Eye Eye exam: Present: EOMI Pupils: Present: BRIAN - Respiratory Respiratory exam: Present: clear to auscultation bilaterally. Absent: accessory muscle use, rales, rhonchi, wheezes - Cardiovascular Cardiovascular exam: Present: regular rate and rhythm - GI/Abdominal GI/Abdominal exam: Present: normal bowel sounds, soft - Extremities Exam Extremities exam: Present: normal inspection - Neurological Exam Neurological exam: Present: alert, oriented X3 - Psychiatric Psychiatric exam: Present: depressed Results - Labs CBC & BMP: 03/04/17 04:35 03/04/17 04:35 Assessment and Plan (1) Volume overload Status: Acute Assessment and plan: Slightly improved with some diuresis. Continue to monitor and provide intermittent Lasix for goal of euvolemia to slight net negative. Recommend obtaining chest x-ray Monday morning. Current Visit: Yes (2) Acute leukemia Status: Acute Assessment and plan: Defer management to oncology. Poor prognosis. Current Visit: Yes
[2017-03-04] MEDS: TEMAZEPAM 7.5 MG CAPSULE PO PRN (20:52)
[2017-03-04] MEDS: LATANOPROST 0.005% OPH SOLN 2.5 ML BOTTLE BOTH EYES SCH (20:55)
[2017-03-05] MEDS: ALBUTEROL 1.25 MG/3 ML NEB RESP TX SCH ×4 (00:38→19:40)
[2017-03-05 05:18] LABS: Hematocrit 23.5 VOL% (35.7-47.0); Hemoglobin 7.8 GM/DL (12.0-16.0); Immature Granulocytes % 0.3 %; Immature Granulocytes Absolute 0.06 #; Lymphocytes % 32.5 % (21.3-54.2); Mean Corpuscular HGB Conc 33.2 GM/DL (32-36); Mean Corpuscular Hemoglobin 31 PG (27-34); Mean Corpuscular Volume 93.3 FL (87-102); Mean Platelet Volume 11.7 FL (9.6-12.0); Monocytes # 14.2 10*3/uL (0.11-0.8); Monocytes % 66.3 % (1.7-12.7); Neutrophils # 0.2 10*3/uL (1.4-7.4); Neutrophils % 0.9 % (38.7-73.9); Red Blood Count 2.52 MC/CUMM (3.8-5.5); Red Cell Distribution Width 16.8 % (9.3-17.3); White Blood Count 21.5 T/CUMM (4-12)
[2017-03-05 05:36] LABS: Platelet Count 29 T/CUMM (130-400)
[2017-03-05] MEDS: MORPHINE 2 MG/1 ML SYRINGE IV PRN ×4 (05:41→21:02)
[2017-03-05] MEDS: MEROPENEM 1,000 MG in SODIUM CHLORIDE 0.9% 100 ML IV SCH ×3 (05:48→21:00)
[2017-03-05 05:50] LABS: Calcium 8.5 MG/DL (8.5-10.1); Magnesium 1.9 MG/DL (1.8-2.4); Osmolality,Calculated 279.7 MOS/KG (273-304); Potassium 4.3 MMOL/L (3.5-5.1)
[2017-03-05 06:03] LABS: Anisocytosis 1+; Atypical Lymphocytes Few; Lymphocytes 94 % (20-55); Macrocytosis 1+; Platelet Estimate Decreased; Segmented Neutrophils 6 % (50-85); Total Cells Counted 100
[2017-03-05] MEDS ORDERED: diphenhydrAMINE CAP 25 MG CAPSULE PO ONE (07:31)
[2017-03-05] MEDS ORDERED: ACETAMINOPHEN 325 MG TABLET PO ONE (07:32)
--- NOTE | 2017-03-05 09:50 | Oncology Progress Note ---
Oncology Subjective PN Interval history: Acute myelogenous leukemia: She was unable to complete a full course of induction chemotherapy for her leukemia because of the toxicity and poor tolerance.White cell count today is 21,500 with an absolute neutrophil count remains at 200. This of course, is not good. Anemia: Her hemoglobin is down to 7.8. 2 units of packed red cells have been ordered. Thrombocytopenia: Lab work today includes a platelet count of 29,000. Urinary tract infection: Urine cultures are growing Proteus vulgaris that has intermediate sensitivity to Merrem, actually imipenem. Urine culture also positive for Klebsiella that is sensitive to imipenem. She is on intravenous IV antibiotics. Recurrent fever: Initial blood cultures were negative. A repeat set of blood cultures were two nights ago. Blood cultures from March 03, and the 2 blood cultures from February 26 all remain negative so far. In addition, she remains afebrile. 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 I understand that her antibiotics have been changed today with Zyvox being added. On physical examination she is severely debilitated and appears acutely and chronically ill. She complains of sore mouth and odynophagia. Her oral mucosa appears somewhat atrophic and there was blood on her mucosa. This appears to be stomatitis. Her hearing is normal. Her trachea is midline and she has no neck masses. Her breath sounds are slightly coarse but I hear no rubs, rales or rhonchi. Her heart rhythm is regular without murmur, gallop or rub. She is extremely weak and debilitated and we are continuing symptomatic supportive care. Exam - Constitutional Vitals: Period Temp Pulse Resp BP Sys/Lopes Pulse Ox Last 24 Hr 98.4 F-99.5 F 69-90 16-20 117-139/56-63 94-98 Results - Labs CBC & BMP: 03/05/17 04:19 03/05/17 04:19
[2017-03-05] MEDS ORDERED: SODIUM CHLORIDE 0.9% 250 ML IV PRN (09:53)
[2017-03-05] MEDS: POTASSIUM CHLORIDE 8 MEQ CAPSULE PO SCH ×2 (11:02→21:10)
[2017-03-05] MEDS: ALLOPURINOL 300 MG TABLET PO SCH (11:05)
[2017-03-05] MEDS: buPROPion 100 MG TABLET PO SCH (11:05)
[2017-03-05] MEDS: TIMOLOL 0.5% OPH SOLN 5 ML BOTTLE BOTH EYES SCH (11:06)
[2017-03-05] MEDS: VANCOMYCIN INJ 1,250 MG in SODIUM CHLORIDE 0.9% 250 ML IV SCH (17:30)
[2017-03-05] MEDS: TEMAZEPAM 7.5 MG CAPSULE PO PRN (21:11)
[2017-03-05] MEDS: LATANOPROST 0.005% OPH SOLN 2.5 ML BOTTLE BOTH EYES SCH (21:11)
[2017-03-06] MEDS: ALBUTEROL 1.25 MG/3 ML NEB RESP TX SCH ×4 (00:14→18:54)
[2017-03-06] MEDS: MORPHINE 2 MG/1 ML SYRINGE IV PRN ×5 (03:17→20:32)
[2017-03-06] MEDS: MEROPENEM 1,000 MG in SODIUM CHLORIDE 0.9% 100 ML IV SCH ×3 (05:43→20:32)
[2017-03-06 08:03] LABS: Hematocrit 29.9 VOL% (35.7-47.0); Hemoglobin 10.1 GM/DL (12.0-16.0); Immature Granulocytes % 0.2 %; Immature Granulocytes Absolute 0.05 #; Lymphocytes # 20.2 10*3/uL (1.4-4.0); Lymphocytes % 63.3 % (21.3-54.2); Mean Corpuscular HGB Conc 33.8 GM/DL (32-36); Mean Corpuscular Hemoglobin 31 PG (27-34); Mean Corpuscular Volume 92.9 FL (87-102); Mean Platelet Volume 11.3 FL (9.6-12.0); Monocytes # 11.4 10*3/uL (0.11-0.8); Monocytes % 35.8 % (1.7-12.7); Neutrophils # 0.2 10*3/uL (1.4-7.4); Neutrophils % 0.7 % (38.7-73.9); Platelet Count 44 T/CUMM (130-400); Red Blood Count 3.22 MC/CUMM (3.8-5.5); Red Cell Distribution Width 16.7 % (9.3-17.3); White Blood Count 31.9 T/CUMM (4-12)
[2017-03-06 08:22] LABS: Lymphocytes 66 % (20-55); Promyelocytes 3 %; Segmented Neutrophils 1 % (50-85); Total Cells Counted 100
[2017-03-06 08:24] LABS: Hypochromasia Slight; Platelet Estimate Decreased
[2017-03-06 08:25] LABS: Polychromasia Slight
--- NOTE | 2017-03-06 08:36 | Pulmonology Progress Note ---
Pulmonary - PN: Subj Interval history: Patient is an 86-year-old white lady that probably has leukemia. She is being evaluated for further treatment. Last week she had some shortness of breath and this may be a little better. She is being treated for pneumonia and mild volume overload. She was not able to tolerate her chemotherapy for leukemia. Her white count is starting to increase again. She says she feels very weak and just does not feel well. She does say her shortness of breath may be a little better. Exam (Progress Note) - Constitutional Vitals: Period Temp Pulse Resp BP Sys/Lopes Pulse Ox Last 24 Hr 97.5 F-99.4 F 62-97 18-99 118-163/58-75 93-99 Exam: General appearance: normal weight, no acute distress, other (She is comfortable sitting up in bed on low-flow oxygen and seems to be breathing comfortably.) - Head Head exam: Present: normal inspection, normocephalic - Eye Eye exam: Present: EOMI. Absent: scleral icterus Pupils: Present: BRIAN - ENT ENT exam: Present: normal exam - Neck Neck exam: Present: normal inspection. Absent: lymphadenopathy, thyromegaly - Respiratory Respiratory exam: Present: She has fairly good breath sounds bilaterally and she does have some mild rhonchi present. She does have coarse breath sounds. - Cardiovascular Cardiovascular exam: Present: regular rate and rhythm. Absent: gallop, JVD, systolic murmur - GI/Abdominal GI/Abdominal exam: Present: soft. Absent: distended, guarding, organomegaly, tenderness - Extremities Exam Extremities exam: Absent: calf tenderness, edema - Neurological Exam Neurological exam: Present: alert, oriented X3, CN II-XII intact - Psychiatric Psychiatric exam: Present: normal affect, normal mood - Skin Skin exam: Present: warm, dry Results - Labs CBC & BMP: 03/06/17 03:40 03/05/17 04:19 Assessment and Plan (1) Volume overload Status: Acute Assessment and plan: Her clinical picture and CT of her chest are consistent with some mild volume overload. She did diurese fairly well. Her breathing may be a little better. Her chest x-ray still not clear and some of this may be a mild pneumonitis. She is reasonably comfortable at present on low-flow oxygen. Current Visit: Yes (2) Acute leukemia Status: Acute Assessment and plan: The patient is being evaluated for leukemia. Her white count is going up again. She has not been able to tolerate much treatment so far. Current Visit: Yes (3) Pericardial effusion without cardiac tamponade Status: Acute Assessment and plan: Patient has a small pericardial thickening and is stable. She has been followed by cardiology. Current Visit: Yes (4) Dyspnea Status: Acute Assessment and plan: She has had some shortness of breath but may be a little better. Her O2 saturations are okay on low-flow oxygen. She seems to be breathing a little better. She is tolerating her respiratory therapy. She is a DNR at present. Current Visit: Yes (5) Elevated brain natriuretic peptide (BNP) level Status: Acute Assessment and plan: This is consistent with mild volume overload. She did diurese nicely. Current Visit: Yes
[2017-03-06 08:49] LABS: Albumin 2.8 G/DL (3.4-5.0); Bilirubin,Total 2.2 MG/DL (0.2-1.0); Calcium 8.8 MG/DL (8.5-10.1); Magnesium 1.8 MG/DL (1.8-2.4); Osmolality,Calculated 278.7 MOS/KG (273-304); Potassium 3.9 MMOL/L (3.5-5.1)
[2017-03-06] MEDS ORDERED: FUROSEMIDE 40 MG/4 ML VIAL IV ONE (09:10)
[2017-03-06] MEDS ORDERED: FUROSEMIDE 40 MG/4 ML VIAL ONE (09:12)
--- NOTE | 2017-03-06 09:13 | Oncology Progress Note ---
Assessment and Plan (1) Acute leukemia Status: Acute Assessment and plan: Highly suspicious for acute leukemia. Plan is peripheral blood evaluation and 2 units of packed red blood cells tonight. I have informed her that a bone marrow biopsy may be necessary though with her degree of circulating leukocytes a diagnosis could easily be rendered from peripheral blood testing. Her daughter and [id number] were present during my interview and discussion. I have started IV fluids and allopurinol in anticipation of some form of chemotherapy treatment. Current Visit: Yes Oncology Subjective PN Interval history: Hospital day 10 approximately 4 AML. Rising white blood count is noted. Continues with dyspnea. Her weight is 194 today. I will give Lasix due to the fact she had both red blood cells and platelets yesterday. Her chest x-ray is reviewed from 616 with plans to repeat in the a.m. She is awake alert and cooperative but appears in mild respiratory distress. She does not exhibit any wheezes or crackles on anterior lung examination. Her heart rhythm is regular her abdomen is soft and nontender. She does have a lesion on the dorsum of the left hand that actually may need local incision and drainage. Her daughter and 2 of her grandsons were present. We discussed a rising white blood cell count. We discussed restarting chemotherapy though there was significant hesitation. We also discussed alternative chemotherapy such as Dacogen IV though I expressed pessimism as to its effectiveness in this situation. At this time we are continuing with best medical care with antibiotics transfusions as needed and monitoring of her fluid and oxygen status. We are using morphine as needed to alleviate some of the air hunger. The family will also talk further regarding possible home hospice discharge. A DNR order remains in place at this time. Exam - Constitutional Vitals: Period Temp Pulse Resp BP Sys/Lopes Pulse Ox Last 24 Hr 97.5 F-99.4 F 62-97 18-99 118-163/58-75 93-99 Results - Labs CBC & BMP: 03/06/17 03:40 03/06/17 08:02
[2017-03-06] MEDS: POTASSIUM CHLORIDE 8 MEQ CAPSULE PO SCH ×2 (10:03→20:31)
[2017-03-06] MEDS: TIMOLOL 0.5% OPH SOLN 5 ML BOTTLE BOTH EYES SCH (10:04)
[2017-03-06] MEDS: buPROPion 100 MG TABLET PO SCH (10:04)
[2017-03-06] MEDS: ALLOPURINOL 300 MG TABLET PO SCH (10:04)
[2017-03-06] MEDS: VANCOMYCIN INJ 1,250 MG in SODIUM CHLORIDE 0.9% 250 ML IV SCH (11:37)
[2017-03-06] MEDS: DESITIN 4OZ/NYSTATIN 15 GRAM MIXTURE PASTE TOP SCH ×2 (13:46→20:33)
[2017-03-06] MEDS: TEMAZEPAM 7.5 MG CAPSULE PO PRN (20:32)
[2017-03-06] MEDS: LATANOPROST 0.005% OPH SOLN 2.5 ML BOTTLE BOTH EYES SCH (20:37)
[2017-03-07] MEDS: ALBUTEROL 1.25 MG/3 ML NEB RESP TX SCH ×2 (00:08→09:53)
[2017-03-07] MEDS ORDERED: HEPARIN LOCK FLUSH 500 UNIT/5 ML SYRINGE IV ONE (03:03)
[2017-03-07] MEDS: VANCOMYCIN INJ 1,250 MG in SODIUM CHLORIDE 0.9% 250 ML IV SCH ×2 (03:47→22:06)
[2017-03-07] MEDS: MORPHINE 2 MG/1 ML SYRINGE IV PRN ×3 (05:09→21:16)
[2017-03-07] MEDS: MEROPENEM 1,000 MG in SODIUM CHLORIDE 0.9% 100 ML IV SCH ×3 (05:42→21:22)
[2017-03-07 06:45] LABS: Albumin 2.6 G/DL (3.4-5.0); Bilirubin,Total 1.8 MG/DL (0.2-1.0); Calcium 8.6 MG/DL (8.5-10.1); Magnesium 1.8 MG/DL (1.8-2.4); Osmolality,Calculated 281.5 MOS/KG (273-304); Potassium 3.3 MMOL/L (3.5-5.1); Total Protein 5.8 G/DL (6.4-8.3)
[2017-03-07] MEDS ORDERED: ALBUTEROL 1.25 MG/3 ML NEB RESP TX PRN (08:15)
--- NOTE | 2017-03-07 08:16 | XRay Report ---
History: Pneumonia Date: 03/07/2017 Study: Chest x-ray AP portable Comparison exam: March 03, 2017 The left PICC line is stable in position. There is stable mild cardiomegaly. The mediastinal contours are unchanged. There is continued patchy and hazy pneumonia throughout the left lung, the same or slightly increased. There is slightly increased patchy and strandy infiltrate in the medial right lung base. There is continued mild left pleural effusion. Osseous structures are similar. Impression: Continued bilateral pneumonia, slightly increased overall PROCEDURE INTERPRETED AT [facility] RAD[facility] Final Report Signed by: Dr. Jeana Trejo
[2017-03-07] MEDS: ALPRAZolam 0.25 MG TABLET PO PRN (08:34)
[2017-03-07] MEDS: buPROPion 100 MG TABLET PO SCH (08:34)
[2017-03-07] MEDS: DESITIN 4OZ/NYSTATIN 15 GRAM MIXTURE PASTE TOP SCH ×2 (08:34→21:28)
[2017-03-07] MEDS ORDERED: FUROSEMIDE 40 MG/4 ML VIAL IV ONE (08:37)
[2017-03-07] MEDS: TIMOLOL 0.5% OPH SOLN 5 ML BOTTLE BOTH EYES SCH (08:38)
--- NOTE | 2017-03-07 08:39 | Oncology Progress Note ---
Assessment and Plan (1) Acute leukemia Status: Acute Assessment and plan: Highly suspicious for acute leukemia. Plan is peripheral blood evaluation and 2 units of packed red blood cells tonight. I have informed her that a bone marrow biopsy may be necessary though with her degree of circulating leukocytes a diagnosis could easily be rendered from peripheral blood testing. Her daughter and [id number] were present during my interview and discussion. I have started IV fluids and allopurinol in anticipation of some form of chemotherapy treatment. Current Visit: Yes Oncology Subjective PN Interval history: Elderly patient with AML. No fever overnight. She is somewhat improved today. We have been able to wean her back to nasal cannula. Morphine as needed has helped with her work of breathing. Her CBC is pending. Her chemistry shows a normal creatinine and mild hypokalemia. Approximately 2500 cc noted with IV diuretic yesterday. I will repeat the same dose again today. Elevated cardiac BNP is noted. Her daughter is at bedside. Her lungs sound clear on bilateral anterior auscultation. Her heart rhythm is regular. Her abdomen is soft and nontender. She is awake alert interactive and cooperative. Chest x-ray with continued bilateral infiltrates left greater than right remaining on broad-spectrum antibiotics. Exam - Constitutional Vitals: Period Temp Pulse Resp BP Sys/Lopes Pulse Ox Last 24 Hr 98.4 F-99.2 F 73-99 17-21 132-155/64-71 92-100 Results - Labs CBC & BMP: 03/06/17 03:40 03/07/17 04:39
[2017-03-07 08:46] LABS: Hematocrit 30.2 VOL% (35.7-47.0); Hemoglobin 10.4 GM/DL (12.0-16.0); Immature Granulocytes % 0.1 %; Immature Granulocytes Absolute 0.04 #; Lymphocytes # 31.1 10*3/uL (1.4-4.0); Mean Corpuscular HGB Conc 34.4 GM/DL (32-36); Mean Corpuscular Hemoglobin 31 PG (27-34); Mean Corpuscular Volume 90.4 FL (87-102); Mean Platelet Volume 11.1 FL (9.6-12.0); Monocytes # 10.6 10*3/uL (0.11-0.8); Monocytes % 25.2 % (1.7-12.7); Neutrophils # 0.3 10*3/uL (1.4-7.4); Neutrophils % 0.7 % (38.7-73.9); Red Blood Count 3.34 MC/CUMM (3.8-5.5); Red Cell Distribution Width 16.1 % (9.3-17.3)
[2017-03-07] MEDS: POTASSIUM CHLORIDE 20 MEQ TABLET PO SCH (08:49)
[2017-03-07 08:53] LABS: Platelet Count 23 T/CUMM (130-400)
[2017-03-07] MEDS: POTASSIUM CHLORIDE 8 MEQ CAPSULE PO SCH ×2 (09:03→21:16)
[2017-03-07] MEDS: ALLOPURINOL 300 MG TABLET PO SCH (09:03)
[2017-03-07 09:15] LABS: Lymphocytes 91 % (20-55); Segmented Neutrophils 1 % (50-85); Total Cells Counted 100
[2017-03-07 09:18] LABS: Atypical Lymphocytes Few; Hypochromasia 1+; Microcytosis 1+; Platelet Estimate Decreased
[2017-03-07 09:30] LABS: Albumin 2.6 G/DL (3.4-5.0); Bilirubin,Total 1.7 MG/DL (0.2-1.0); Calcium 8.3 MG/DL (8.5-10.1); Osmolality,Calculated 280.7 MOS/KG (273-304); Potassium 3.3 MMOL/L (3.5-5.1); Total Protein 5.9 G/DL (6.4-8.3)
[2017-03-07] MEDS: ACETAMINOPHEN 325 MG TABLET PO PRN (18:35)
[2017-03-07] MEDS: TEMAZEPAM 7.5 MG CAPSULE PO PRN (21:45)
[2017-03-07] MEDS: LATANOPROST 0.005% OPH SOLN 2.5 ML BOTTLE BOTH EYES SCH (21:49)
[2017-03-08] MEDS: MEROPENEM 1,000 MG in SODIUM CHLORIDE 0.9% 100 ML IV SCH ×2 (05:04→14:21)
[2017-03-08] MEDS: MORPHINE 2 MG/1 ML SYRINGE IV PRN ×4 (05:10→17:58)
[2017-03-08 05:14] LABS: Hematocrit 30.3 VOL% (35.7-47.0); Hemoglobin 10.3 GM/DL (12.0-16.0); Immature Granulocytes % 0.1 %; Immature Granulocytes Absolute 0.05 #; Lymphocytes # 33.6 10*3/uL (1.4-4.0); Lymphocytes % 59.7 % (21.3-54.2); Mean Corpuscular Hemoglobin 31 PG (27-34); Mean Platelet Volume 11.5 FL (9.6-12.0); Monocytes # 22.3 10*3/uL (0.11-0.8); Monocytes % 39.6 % (1.7-12.7); Neutrophils # 0.3 10*3/uL (1.4-7.4); Neutrophils % 0.6 % (38.7-73.9); Red Blood Count 3.33 MC/CUMM (3.8-5.5); Red Cell Distribution Width 15.9 % (9.3-17.3)
[2017-03-08 05:17] LABS: White Blood Count 56.3 T/CUMM (4-12)
[2017-03-08 05:18] LABS: Platelet Count 23 T/CUMM (130-400)
[2017-03-08 05:39] LABS: Lymphocytes 80 % (20-55); Total Cells Counted 100
[2017-03-08 05:40] LABS: Hypochromasia 1+; Microcytosis 1+; Ovalocytes Slight; Platelet Estimate Decreased
[2017-03-08 05:41] LABS: Atypical Lymphocytes Few
[2017-03-08 06:11] LABS: Albumin 2.8 G/DL (3.4-5.0); Bilirubin,Total 1.8 MG/DL (0.2-1.0); Calcium 8.3 MG/DL (8.5-10.1); Magnesium 1.9 MG/DL (1.8-2.4); Osmolality,Calculated 286.4 MOS/KG (273-304); Potassium 3.1 MMOL/L (3.5-5.1); Total Protein 6.1 G/DL (6.4-8.3)
--- NOTE | 2017-03-08 09:46 | CT Report ---
CT head/brain wo con Indication: Decreased LOC Comparison: None Technique: Multiple axial tomographic images of the brain were obtained without the use of intravenous contrast. Findings: Study is significantly limited secondary to motion. Within the limitations of this exam are the findings below. Bilateral subdural collections are noted which are predominantly hypodense but contains scattered areas of hyperdensity suggesting acute on chronic subdural hematomas. There is also more isodensity layering posteriorly within the collections. These collections involving the frontal, parietal, and occipital regions. The one on the left measures up to 1.5 cm in width. The one on the right measures up to 1.2 cm in width. Question mild rightward midline shift. 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 Question mild rightward midline shift. Limited exam. Critical Results: Discussed with Joy Glaser RN at time of dictation. The CT exam was performed using one or more of the following dose reduction techniques: Automated exposure control, adjustment of the mA and/or kV according to patient size, or use of iterative reconstruction technique. PROCEDURE INTERPRETED AT [facility] DEPARTMENT OF RADIOLOGY Final Report Signed by: Dr Johnny Patel
--- NOTE | 2017-03-08 10:06 | Oncology Progress Note ---
Assessment and Plan (1) Acute leukemia Status: Acute Assessment and plan: Highly suspicious for acute leukemia. Plan is peripheral blood evaluation and 2 units of packed red blood cells tonight. I have informed her that a bone marrow biopsy may be necessary though with her degree of circulating leukocytes a diagnosis could easily be rendered from peripheral blood testing. Her daughter and [id number] were present during my interview and discussion. I have started IV fluids and allopurinol in anticipation of some form of chemotherapy treatment. Current Visit: Yes Oncology Subjective PN Interval history: The patient is drowsy this morning. She appears to be moving all extremities. Her pupils are equal bilaterally at approximately 3 mm. Her daughter is at bedside who is been present since noon yesterday. The patient reporting escalated headache throughout the day and also an episode of nausea around 12 noon yesterday. She has received IV Phenergan and at least 2 doses of IV morphine. She is hypertensive and her pulse is approximately 60-70. Her breathing is comfortable with clear breath sounds bilateral anteriorly this morning. No wheezes or crackles. O2 at nasal cannula. Labs are reviewed. Poor prognosis elderly patient with AML. DNR. Will check CT of the brain given findings of headache and nausea in the setting of significant and prolonged thrombocytopenia. Exam - Constitutional Vitals: Period Temp Pulse Resp BP Sys/Lopes Pulse Ox Last 24 Hr 97.1 F-9736 F 64-79 16-20 135-188/60-79 92-97 Results - Labs CBC & BMP: 03/08/17 03:53 03/08/17 03:53
[2017-03-08] MEDS: DESITIN 4OZ/NYSTATIN 15 GRAM MIXTURE PASTE TOP SCH ×2 (10:10→21:24)
[2017-03-08] MEDS: POTASSIUM CHLORIDE RIDER 20 MEQ in PREMIX 1 EACH IV SCH ×2 (12:00→15:07)
[2017-03-08] MEDS: POTASSIUM CHLORIDE 20 MEQ TABLET PO SCH (12:45)
[2017-03-08] MEDS: ALLOPURINOL 300 MG TABLET PO SCH (12:46)
[2017-03-08] MEDS: POTASSIUM CHLORIDE 8 MEQ CAPSULE PO SCH (12:46)
[2017-03-08] MEDS: buPROPion 100 MG TABLET PO SCH (12:46)
[2017-03-08] MEDS: TIMOLOL 0.5% OPH SOLN 5 ML BOTTLE BOTH EYES SCH (14:19)
--- NOTE | 2017-03-08 17:36 | Event Note ---
Case discussed with several family members at bedside. Comfort care measures voiced and understood.
[2017-03-08] MEDS: VANCOMYCIN INJ 1,250 MG in SODIUM CHLORIDE 0.9% 250 ML IV SCH (17:38)
[2017-03-08] MEDS ORDERED: HEPARIN LOCK FLUSH 500 UNIT/5 ML SYRINGE IV ONE (17:40)
[2017-03-08] MEDS: LORazepam 2 MG/1 ML VIAL IV PRN (21:19)
[2017-03-08] MEDS: LATANOPROST 0.005% OPH SOLN 2.5 ML BOTTLE BOTH EYES SCH (21:24)
[2017-03-09] MEDS: POTASSIUM CHLORIDE 8 MEQ CAPSULE PO SCH (00:37)
--- NOTE | 2017-03-09 08:26 | Oncology Progress Note ---
Assessment and Plan (1) Acute leukemia Status: Acute Assessment and plan: Highly suspicious for acute leukemia. Plan is peripheral blood evaluation and 2 units of packed red blood cells tonight. I have informed her that a bone marrow biopsy may be necessary though with her degree of circulating leukocytes a diagnosis could easily be rendered from peripheral blood testing. Her daughter and [id number] were present during my interview and discussion. I have started IV fluids and allopurinol in anticipation of some form of chemotherapy treatment. Current Visit: Yes Oncology Subjective PN Interval history: Patient with dilated and unresponsive pupils bilaterally. No response to voice or sternal rub. Continuing comfort measures Exam - Constitutional Vitals: Period Temp Pulse Resp BP Sys/Lopes Pulse Ox Last 24 Hr 97.0 F-97.5 F 61-88 18-21 146-192/60-79 89-94 Results - Labs CBC & BMP: 03/08/17 03:53 03/08/17 03:53
[2017-03-09] MEDS ORDERED: HEPARIN LOCK FLUSH 500 UNIT/5 ML SYRINGE IV ONE (08:28)
[2017-03-09] MEDS: MORPHINE 2 MG/1 ML SYRINGE IV PRN ×4 (08:33→21:50)
[2017-03-09] MEDS: DESITIN 4OZ/NYSTATIN 15 GRAM MIXTURE PASTE TOP SCH (09:15)
[2017-03-09] MEDS: LORazepam 2 MG/1 ML VIAL IV PRN (14:17)
[2017-03-10] MEDS: MORPHINE 2 MG/1 ML SYRINGE IV PRN ×2 (02:59→06:45)
[2017-03-10] MEDS: DESITIN 4OZ/NYSTATIN 15 GRAM MIXTURE PASTE TOP SCH (03:04)
[2017-03-10 07:36] VITALS: BP 152/86
[2017-03-10] MEDS ORDERED: NALOXONE 0.4 MG/ML VIAL IV PRN (08:37)
[2017-03-10] MEDS ORDERED: MORPHINE PCA 30 MG/30 ML SYRINGE IV SCH (09:00)
--- NOTE | 2017-03-10 09:26 | Oncology Progress Note ---
Assessment and Plan (1) Acute leukemia Status: Acute Assessment and plan: Highly suspicious for acute leukemia. Plan is peripheral blood evaluation and 2 units of packed red blood cells tonight. I have informed her that a bone marrow biopsy may be necessary though with her degree of circulating leukocytes a diagnosis could easily be rendered from peripheral blood testing. Her daughter and [id number] were present during my interview and discussion. I have started IV fluids and allopurinol in anticipation of some form of chemotherapy treatment. Current Visit: Yes Oncology Subjective PN Interval history: The patient's pupils are smaller but still unreactive. Anisocoria right greater than left is noted. She is warm to touch. Her heart rhythm is regular at this time. Unresponsive to voice or sternal rub. Her son and daughter are at bedside. Continue with comfort care with plans to institute morphine MOLDER HAND. Exam - Constitutional Vitals: Period Temp Pulse Resp BP Sys/Lopes Pulse Ox Last 24 Hr 97.0 F-99.6 F 85-120 20-30 150-162/80-94 92-93 Results - Labs CBC & BMP: 03/08/17 03:53 03/08/17 03:53
--- NOTE | 2017-03-11 09:58 | Discharge Summary ---
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 The patient underwent workup with echocardiogram and PICC line placement. Chemotherapy was initiated with nelly-C continuous infusion on days 1 through 3 wants diagnosis was confirmed. The patient had a sharon hospital course thereafter with episodes of dyspnea and apparent volume overload. She was seen by pulmonology and cardiology. She did have a repeat echocardiogram demonstrating a 2 cm pericardial effusion. This was followed expectantly. She received multiple transfusions of red blood cells platelets plasma and cryoprecipitate during her hospitalization. She was given broad-spectrum antibiotics throughout the hospitalization as well. Approximately 48 hours prior to her demise she developed nausea and headache. A CT of the brain showed bilateral subdural hematomas. Comfort care was pursued from that point forward with her family present. The patient developed a comatose mental status with fixed and dilated pupils and on 03/10/2017. Diagnosis - Discharge Diagnosis (1) Acute leukemia Status: Acute Discharge Plan - Discharge Data Disposition: - Discharge Medications No Action buPROPion [Wellbutrin] 100 mg PO DAILY Timolol 0.5% Oph Soln [Timoptic 0.5%] 1 drop BOTH EYES DAILY Amlodipine Besylate [Amlodipine Besylate] 5 mg PO DAILY Latanoprost [Latanoprost 0.005 % Oph Soln] 1 drop BOTH EYES BEDTIME - Follow Up or Referral - Forms/Instructions Exam - Constitutional Vitals: Period Temp Pulse Resp BP Sys/Lopes Pulse Ox Last 24 Hr 0 Discharge Results Procedures and tests throughout hospitalization: Pending Orders 02/21/17 17:24 Flow Cytometry Blood Routine 03/07/17 09:01 Single Donor Platelets Routine DS: Provider Date of admission: 02/21/17 14:44 Primary care physician: Andrew Patel Attending physician on admission: Claude Pulido MD Consults: 02/21/17 16:13 Consult to Dietitian [CONS] Routine Reason for Dietitian: Diet Instruction 02/26/17 20:45 Consult to Pharmacy [CONS] Routine Reason for Pharmacy Consult: Dose/Manage Antibiotics 03/01/17 12:13 Consult to Physician [CONS] Routine Comment: Consulting Provider: Man Pineda Consulting Provider Notified: Yes When should Consulting Provider be notified: Now Consult to Specialist Group: Pulmonology When should Consulting Provider be notified: Now Person Notified: SUMMER Date Notified: 03/01/17 Time Notified: 13:06 03/01/17 12:15 Consult to Physician [CONS] Routine Comment: PERICARDIAL EFFUSION Consulting Provider: Cardiology - [facility] Consulting Provider Notified: Yes When should Consulting Provider be notified: Now Consult to Specialist Group: Cardiology When should Consulting Provider be notified: Now Person Notified: SONIYA Date Notified: 03/01/17 Time Notified: 12:25 03/02/17 09:09 Consult to Physical Therapy [CONS] Routine Reason for Physical Therapy: Evaluate and Treat Discharging clinician: Claude Pulido MD
== END 2017-03-10 10:15 | disposition expired | DRG 840 ==
LOC: N.4E 14:44
PROVIDERS: ADMIT Specialist; ATTEND Specialist